=== PATIENT | male | born 1960 | race Caucasian/White ===

== ENCOUNTER 2018-01-20 17:21 | Emergency (ER) | payer BC | END 2018-01-20 18:55 | disposition home or self-care (01) | LOC: D.ER 17:21 | DX: M25.532 Pain in left wrist (principal); Z87.81 Personal history of (healed) traumatic fracture; E11.9 Type 2 diabetes mellitus without complications ==

== ENCOUNTER 2018-02-23 16:35 | Emergency (ER) | payer BC ==
[2018-02-23 17:00] LABS: BASOPHILS 0.3 % (0-2); HEMATOCRIT 41.2 % (42.0-54.0); HEMOGLOBIN 14.3 g/dL (13.5-17.5); IMMATURE GRANULOCYTES 0.3 % (0-5); LYMPHOCYTES 22.8 % (15-50); MCH 29.8 pg (26.0-34.0); MCHC 34.7 g/dL (31.0-37.0); MCV 85.8 fL (80.0-100.0); MEAN PLATELET VOLUME 9.7 fL (7.4-10.4); MONOCYTES 5.3 % (2-11); NEUTROPHILS 70.3 % (40-80); PLATELET COUNT 235 10x3/uL (130-400); RDW 13.3 % (11.5-14.5); WBC 12.4 10x3/uL (4.8-10.8)
[2018-02-23 17:19] LABS: ALBUMIN 3.5 g/dL (3.4-5.0); ALKALINE PHOSPHATASE 53 U/L (46-116); ALT (SGPT) 23 U/L (10-68); BILIRUBIN - TOTAL 0.24 mg/dL (0.2-1.3); CALC OSMOLALITY 279 mosm/kg (275-300); CALCIUM 9.4 mg/dL (8.5-10.1); CARBON DIOXIDE 25.5 mmol/L (21.0-32.0); CHLORIDE - SERUM 103 mmol/L (98-107); CREATININE - SERUM 0.7 mg/dL (0.6-1.3); GLUCOSE 220 mg/dL (74-106); POTASSIUM - SERUM 4.2 mmol/L (3.5-5.1); PROTEIN - SERUM 7.1 g/dL (6.4-8.2); SODIUM 136 mmol/L (136-145); UREA NITROGEN 15 mg/dL (7-18); eGFR NON AFRICAN AMERICAN > 90 mL/min (90-120)
[2018-02-23 17:32] LABS: CHOL - HDL RATIO 8.9 ratio (2.3-4.9); CHOLESTEROL, TOTAL 241 mg/dL (0-200); CREATINE KINASE 178 UL (21-232); HDL CHOLESTEROL 27 mg/dL (32-96); LDL CHOLESTEROL 164 mg/dL (0-100); LDL-HDL RATIO 6.1 ratio (1.5-3.5); PRO BNP 31 pg/mL (0-125); TRIGLYCERIDE 250 mg/dL (30-200)
[2018-02-23 17:45] LABS: TROPONIN-I < 0.017 ng/mL (0.000-0.060)
[2018-02-23 20:48] LABS: CKMB 1.4 U/L (0.0-3.6); CREATINE KINASE 133 UL (21-232)
[2018-02-23 20:56] LABS: TROPONIN-I < 0.017 ng/mL (0.000-0.060)
== END 2018-02-23 21:21 | disposition home or self-care (01) ==
LOC: D.ER 16:35
PROVIDERS: Family Medicine; Physician Assistant Medical
DX: R07.9 Chest pain, unspecified (principal); F17.200 Nicotine dependence, unspecified, uncomplicated; R00.0 Tachycardia, unspecified

== ENCOUNTER 2018-08-17 22:00 | Emergency (ER) | payer BC ==
[~2018-08-17] VITALS: Ht 175.3 cm; Wt 89.5 kg
[2018-08-17 22:06] VITALS: Ht 175.3 cm; Wt 89.5 kg
[2018-08-17 22:25] LABS: BASOPHILS 0.5 % (0-2); EOSINOPHILS 1.4 % (0-7); HEMATOCRIT 42.2 % (42.0-54.0); HEMOGLOBIN 14.8 g/dL (13.5-17.5); IMMATURE GRANULOCYTES 0.2 % (0-5); LYMPHOCYTES 38.4 % (15-50); MCHC 35.1 g/dL (31.0-37.0); MCV 85.6 fL (80.0-100.0); MEAN PLATELET VOLUME 9.3 fL (7.4-10.4); MONOCYTES 4.6 % (2-11); NEUTROPHILS 54.9 % (40-80); RBC 4.93 10x6/uL (4.20-6.10); RDW 12.9 % (11.5-14.5); WBC 9.1 10x3/uL (4.8-10.8)
[2018-08-17 22:26] LABS: PLATELET COUNT 184 10x3/uL (130-400)
[2018-08-17 22:35] LABS: APTT 25.8 SECONDS (22.8-39.4); INR 0.89 (0.85-1.17); PROTIME 11.7 SECONDS (11.6-15.0)
[2018-08-17 22:39] LABS: ALBUMIN 3.2 g/dL (3.4-5.0); ALKALINE PHOSPHATASE 60 U/L (46-116); ALT (SGPT) 21 U/L (10-68); BILIRUBIN - TOTAL 0.22 mg/dL (0.2-1.3); CALC OSMOLALITY 283 mosm/kg (275-300); CALCIUM 8.7 mg/dL (8.5-10.1); CARBON DIOXIDE 27.6 mmol/L (21.0-32.0); CHLORIDE - SERUM 100 mmol/L (98-107); POTASSIUM - SERUM 3.7 mmol/L (3.5-5.1); PROTEIN - SERUM 6.5 g/dL (6.4-8.2); SODIUM 134 mmol/L (136-145); UREA NITROGEN 19 mg/dL (7-18); eGFR NON AFRICAN AMERICAN 82 mL/min (90-120)
[2018-08-17 22:43] LABS: GLUCOSE 354 mg/dL (74-106)
[2018-08-17 22:51] LABS: CKMB 1.5 U/L (0.0-3.6); CREATINE KINASE 89 UL (21-232); MAGNESIUM - SERUM 1.7 mg/dL (1.8-2.4); TROPONIN-I < 0.017 ng/mL (0.000-0.060)
[2018-08-17] MEDS ORDERED: GLIPIZIDE10 MG PO (23:00)
[2018-08-17] MEDS ORDERED: NORCO 7.5/325 T1 TA1 PO (23:02)
[2018-08-18 00:28] VITALS: BP 116/65
== END 2018-08-18 00:28 | disposition home or self-care (01) ==
LOC: D.ER 22:00
PROVIDERS: Emergency Medicine
DX: R07.89 Other chest pain (principal); E11.65 Type 2 diabetes mellitus with hyperglycemia; E83.42 Hypomagnesemia; I10 Essential (primary) hypertension; F17.200 Nicotine dependence, unspecified, uncomplicated

== ENCOUNTER 2018-09-10 07:14 | Emergency (ER) | payer BC ==
[~2018-09-10] VITALS: Ht 175.3 cm; Wt 89.5 kg
[~2018-09-10 07:14] MED LIST: GLIPIZIDE10 MG PO; NORCO 7.5/325 T1 TA1 PO
[2018-09-10 07:24] VITALS: Ht 175.3 cm; Wt 89.5 kg
[2018-09-10 07:42] LABS: APPEARANCE CLEAR (CLEAR); COLOR YELLOW (YELLOW); NITRITE NEGATIVE (NEGATIVE); PROTEIN NEGATIVE (NEGATIVE)
[2018-09-10 07:43] LABS: BILIRUBIN NEGATIVE (NEGATIVE); GLUCOSE 1000 mg/dL (NEGATIVE); KETONE NEGATIVE (NEGATIVE); UROBILINOGEN NORMAL (NORMAL)
[2018-09-10] MEDS ORDERED: NORCO 7.5/325 T1 TA1 PO (08:13)
[2018-09-10 08:24] VITALS: BP 140/77
== END 2018-09-10 08:24 | disposition home or self-care (01) ==
LOC: D.ER 07:14
PROVIDERS: Emergency Medicine
DX: M54.16 Radiculopathy, lumbar region (principal); E11.9 Type 2 diabetes mellitus without complications; I10 Essential (primary) hypertension; F17.200 Nicotine dependence, unspecified, uncomplicated

== ENCOUNTER 2018-10-28 07:11 | Emergency (ER) | payer BC ==
[~2018-10-28] VITALS: Ht 175.3 cm; Wt 89.5 kg
[2018-10-28 07:13] VITALS: Ht 175.3 cm; Wt 89.5 kg
[2018-10-28] MEDS ORDERED: ACETAMINOPHEN500 M1 PO ×2 (07:39→07:42)
[2018-10-28] MEDS ORDERED: MEDROL DOSE PACK4 MG PO ×2 (07:39→07:42)
[2018-10-28] MEDS ORDERED: CYCLOBENZAPRINE10 MG PO ×2 (07:39→07:42)
[2018-10-28 08:04] VITALS: BP 141/85
== END 2018-10-28 08:00 | disposition home or self-care (01) ==
LOC: D.ER 07:11
DX: M54.41 Lumbago with sciatica, right side (principal); E11.9 Type 2 diabetes mellitus without complications; I10 Essential (primary) hypertension; F17.200 Nicotine dependence, unspecified, uncomplicated

== ENCOUNTER → 2018-11-23 07:04 | Outpatient (CLI) | payer BC ==
[2018-10-28 07:13] VITALS: BMI 29.1
[~2018-11-23 07:04] MED LIST changes: +ACETAMINOPHEN500 M1 PO; +CYCLOBENZAPRINE10 MG PO; +MEDROL DOSE PACK4 MG PO
== END | disposition home or self-care (01) ==
LOC: D.MRI 07:04
DX: M54.16 Radiculopathy, lumbar region (principal)

== ENCOUNTER 2019-03-26 08:08 | Emergency (ER) | payer BC ==
[~2019-03-26] VITALS: Ht 175.3 cm; Wt 82.7 kg
[2019-03-26 08:09] VITALS: BP 119/73; Ht 175.3 cm; Wt 82.7 kg
[2019-03-26] MEDS ORDERED: HYDROCODON-ACE1 EAC2 PO (08:28)
[2019-03-26] MEDS ORDERED: ZANAFLEX4 MG PO (08:28)
== END 2019-03-26 08:50 | disposition home or self-care (01) ==
LOC: D.ER 08:08
DX: S39.012A Strain of muscle, fascia and tendon of lower back, initial encounter (principal); X58.XXXA Exposure to other specified factors, initial encounter; Y93.89 Activity, other specified; Y92.89 Other specified places as the place of occurrence of the external cause

== ENCOUNTER 2019-04-27 06:44 | Emergency (ER) | payer MEDICARE, BC ==
[~2019-04-27] VITALS: Ht 175.3 cm; Wt 82.7 kg
[~2019-04-27 06:44] MED LIST changes: +HYDROCODON-ACE1 EAC2 PO; +ZANAFLEX4 MG PO
[2019-04-27 06:55] VITALS: Ht 175.3 cm; Wt 82.7 kg
[2019-04-27] MEDS ORDERED: PROTONIX40 MG PO (06:57)
[2019-04-27] MEDS ORDERED: ULTRAM50 MG PO (07:48)
[2019-04-27] MEDS ORDERED: NAPROSYN500 MG PO (07:49)
[2019-04-27 08:17] VITALS: BP 168/90
== END 2019-04-27 08:17 | disposition home or self-care (01) ==
LOC: D.ER 06:44
DX: R20.2 Paresthesia of skin (principal)

== ENCOUNTER 2019-05-19 12:20 | Emergency (ER) | payer MEDICARE, BC ==
[~2019-05-19] VITALS: Ht 175.3 cm; Wt 83.6 kg
[~2019-05-19 12:20] MED LIST changes: +NAPROSYN500 MG PO; +PROTONIX40 MG PO; +ULTRAM50 MG PO
[2019-05-19 12:21] VITALS: Ht 175.3 cm; Wt 83.6 kg
[2019-05-19] MEDS ORDERED: ULTRAM50 MG PO (14:50)
[2019-05-19 14:58] VITALS: BP 137/81
[2019-05-20] MEDS ORDERED: GABAPENTIN100 MG PO (02:07)
== END 2019-05-19 14:59 | disposition home or self-care (01) ==
LOC: D.ER 12:20
DX: M54.16 Radiculopathy, lumbar region (principal); M51.36 Other intervertebral disc degeneration, lumbar region

== ENCOUNTER 2019-05-19 22:40 | Emergency (ER) | payer MEDICARE, BC ==
[~2019-05-19] VITALS: Ht 175.3 cm; Wt 83.6 kg
[2019-05-19 22:40] VITALS: Ht 175.3 cm; Wt 83.6 kg
[2019-05-20] MEDS ORDERED: GABAPENTIN100 MG PO (02:07)
[2019-05-20 02:21] VITALS: BP 129/84
== END 2019-05-20 02:15 | disposition home or self-care (01) ==
LOC: D.ER 22:40
DX: M54.16 Radiculopathy, lumbar region (principal); W18.30XA Fall on same level, unspecified, initial encounter; Y93.89 Activity, other specified; Y92.89 Other specified places as the place of occurrence of the external cause; M25.551 Pain in right hip

== ENCOUNTER 2019-06-05 23:04 | Emergency (ER) | payer MEDICARE, BC ==
[~2019-06-05] VITALS: Ht 175.3 cm; Wt 83.6 kg
[~2019-06-05 23:04] MED LIST changes: +GABAPENTIN100 MG PO
[2019-06-05 23:10] VITALS: Ht 175.3 cm; Wt 83.6 kg
[2019-06-05] MEDS ORDERED: IBUPROFEN400 MG PO (23:12)
[2019-06-05] MEDS ORDERED: ZANAFLEX4 MG PO (23:12)
[2019-06-05] MEDS ORDERED: METFORMIN HCL500 M1 PO (23:13)
[2019-06-05 23:57] LABS: HEMATOCRIT 44.6 % (42.0-54.0); HEMOGLOBIN 15.7 g/dL (13.5-17.5); LYMPHOCYTES 31.3 % (15-50); MCH 29.8 pg (26.0-34.0); MCHC 35.2 g/dL (31.0-37.0); MCV 84.6 fL (80.0-100.0); MEAN PLATELET VOLUME 8.9 fL (7.4-10.4); RBC 5.27 10x6/uL (4.20-6.10); WBC 11.8 10x3/uL (4.8-10.8)
[2019-06-05 23:58] LABS: APTT 26.2 SECONDS (22.8-39.4); INR 0.87 (0.85-1.17); PROTIME 11.4 SECONDS (11.6-15.0)
[2019-06-05 23:59] LABS: PLATELET COUNT 233 10x3/uL (130-400)
[2019-06-06 00:05] LABS: ALBUMIN 3.5 g/dL (3.4-5.0); ALKALINE PHOSPHATASE 67 U/L (46-116); ALT (SGPT) 22 U/L (10-68); BILIRUBIN - TOTAL 0.26 mg/dL (0.2-1.3); CALC OSMOLALITY 286 mosm/kg (275-300); CALCIUM 9.1 mg/dL (8.5-10.1); CARBON DIOXIDE 23.8 mmol/L (21.0-32.0); CHLORIDE - SERUM 99 mmol/L (98-107); CREATININE - SERUM 1.1 mg/dL (0.6-1.3); GLUCOSE 386 mg/dL (74-106); PROTEIN - SERUM 7.1 g/dL (6.4-8.2); SODIUM 134 mmol/L (136-145); UREA NITROGEN 21 mg/dL (7-18); eGFR NON AFRICAN AMERICAN 73 mL/min (90-120)
[2019-06-06 00:18] LABS: CKMB 0.7 U/L (0.0-3.6); CREATINE KINASE 38 UL (21-232); MAGNESIUM - SERUM 1.9 mg/dL (1.8-2.4); TROPONIN-I < 0.017 ng/mL (0.000-0.060)
[2019-06-06 01:24] VITALS: BP 140/79
== END 2019-06-06 01:24 | disposition home or self-care (01) ==
LOC: D.ER 23:04
PROVIDERS: Family Medicine
DX: R07.89 Other chest pain (principal); G89.29 Other chronic pain

== ENCOUNTER 2019-06-15 20:48 | Emergency (ER) | payer MEDICARE, BC ==
[~2019-06-15] VITALS: Ht 175.3 cm; Wt 83.6 kg
[~2019-06-15 20:48] MED LIST changes: +IBUPROFEN400 MG PO; +METFORMIN HCL500 M1 PO
[2019-06-15 20:56] VITALS: Ht 175.3 cm; Wt 83.6 kg
[2019-06-15] MEDS ORDERED: LIPITOR20 MG PO (21:00)
[2019-06-15] MEDS ORDERED: NITROSTAT0.4 MG SL (21:00)
[2019-06-15] MEDS ORDERED: GLUCOTROL 5 MG T5 MG PO (21:00)
[2019-06-15 21:21] LABS: APTT 27.4 SECONDS (22.8-39.4); BASOPHILS 0.4 % (0-2); EOSINOPHILS 1.2 % (0-7); HEMATOCRIT 41.5 % (42.0-54.0); HEMOGLOBIN 14.8 g/dL (13.5-17.5); IMMATURE GRANULOCYTES 0.3 % (0-5); INR 0.87 (0.85-1.17); LYMPHOCYTES 31.1 % (15-50); MCHC 35.7 g/dL (31.0-37.0); MEAN PLATELET VOLUME 9.6 fL (7.4-10.4); MONOCYTES 5.9 % (2-11); NEUTROPHILS 61.1 % (40-80); PLATELET COUNT 187 10x3/uL (130-400); PROTIME 11.3 SECONDS (11.6-15.0); RBC 4.94 10x6/uL (4.20-6.10); RDW 13.3 % (11.5-14.5); WBC 12.1 10x3/uL (4.8-10.8)
[2019-06-15 21:25] LABS: ALBUMIN 3.5 g/dL (3.4-5.0); ALKALINE PHOSPHATASE 71 U/L (46-116); ALT (SGPT) 32 U/L (10-68); BILIRUBIN - TOTAL 0.24 mg/dL (0.2-1.3); CALC OSMOLALITY 284 mosm/kg (275-300); CALCIUM 8.8 mg/dL (8.5-10.1); CARBON DIOXIDE 25.4 mmol/L (21.0-32.0); CHLORIDE - SERUM 100 mmol/L (98-107); CREATININE - SERUM 1.4 mg/dL (0.6-1.3); POTASSIUM - SERUM 4.3 mmol/L (3.5-5.1); SODIUM 135 mmol/L (136-145); UREA NITROGEN 19 mg/dL (7-18); eGFR NON AFRICAN AMERICAN 55 mL/min (90-120)
[2019-06-15 21:29] LABS: GLUCOSE 337 mg/dL (74-106)
[2019-06-15 21:34] LABS: CKMB 0.8 U/L (0.0-3.6); CREATINE KINASE 56 UL (21-232); MAGNESIUM - SERUM 1.9 mg/dL (1.8-2.4)
[2019-06-15 21:35] LABS: TROPONIN-I < 0.017 ng/mL (0.000-0.060)
[2019-06-15] MEDS ORDERED: INDOCIN25 MG PO (21:59)
[2019-06-15 22:18] VITALS: BP 131/80
[2019-06-16] MEDS ORDERED: NEURONTIN 400400 MG PO (05:33)
[2019-06-16] MEDS ORDERED: HYDROCODON-ACE1 EA10 PO (05:34)
[2019-06-16] MEDS ORDERED: PLAVIX75 MG PO (16:05)
== END 2019-06-15 22:18 | disposition home or self-care (01) ==
LOC: D.ER 20:48
PROVIDERS: Emergency Medicine
DX: R07.89 Other chest pain (principal); I51.9 Heart disease, unspecified; E11.65 Type 2 diabetes mellitus with hyperglycemia; G81.91 Hemiplegia, unspecified affecting right dominant side; F17.200 Nicotine dependence, unspecified, uncomplicated

== ENCOUNTER 2019-06-16 02:48 | Observation (INO) | payer MEDICARE, BC ==
[~2019-06-16] VITALS: Ht 175.3 cm; Wt 84.5 kg
--- NOTE | ~2019-06-16 | HEMODYNAMI ---
PATIENT:MICHELLE FERREIRA MEDICAL RECORD: [id number] : 62 [id number] ADMISSION DATE: 06/16/19 Generatedon:06/16/201915:07 Patient name: MICHELLE FERREIRA Patient #: [id number] SSN: [id number] : 1960 Date of study: 06/16/2019 Page: Of Hemodynamic Procedure Report Patient Data Patient Demographics Procedure consent was obtained First Name: MICHELLE Gender: Male Last Name: JHON : 1960 [facility] Initial: O Age: 58 year(s) Patient #: [id number] Race: SSN: [id number] Additional ID: [id number] Contact details [address]: [address] [place] [address] State: [place] City: [place] Zip code: [address] Admission Admission Data Admission Date: 06/16/2019 Admission Time: 4:09 Arrival Date: 06/16/2019 Arrival Time: 0:00 Admit Source: Emergency Insurance Payor: Private department health insurance Room #: D.2121 [facility] #: [id number] Height (in.): 68.9 BSA: 2 (m2) Height (cm.): 175 BMI: 27.43 (kg/m2) Weight (lbs.): 185.19 Weight (kg.): 84 Lab Results Lab Result Date: 06/16/2019 Lab Result Time: 3:42 Biochemistry Name Units Result Min Max BUN mg/dl 19 --(----)*- 7 18 Creatinine mg/dl 1.4 --(----)*- 0.6 1.3 CBC Name Units Result Min Max Hematocrit % 41.5 -*(----)-- 42 54 Hemoglobin g/dl 14.8 --(-*--)-- 13.5 17.5 Procedure Procedure Types Cath Procedure Diagnostic Procedure C [facility] w/Coronaries FFR/IVUS FFR Initial Sedation Charges Moderate Sedation up to 30 minutes PCI Procedure Coronary Stent Coronary Stent Initial x2 Procedure Description Procedure Date Procedure Date: 06/16/2019 Procedure Start Time: 14:43 Procedure End Time: 15:01 Procedure Staff Name Function Mathew Berry MD Performing Physician Flory Patel RT Monitor Shannan Hope RT Scrub Yovanny Kohli RT Scrub Lilia Lobo RN Nurse Procedure Data Cath Procedure Fluoroscopy Diagnostic fluoroscopy Total fluoroscopy Time: 5.7 time: 5.7 min min Diagnostic fluoroscopy Total fluoroscopy dose: 425 dose: 425 mGy mGy Contrast Material Contrast Material Type Amount (ml) Isovue 300 88 Entry Location Entry Primary Successful Side Size Upsize Upsize Entry Closure Pinedo ccessful Closure Location (Fr) 1 (Fr) 2 (Fr) Remarks Device Remarks Radial Right 6 Fr Mechanical artery Short Compression Estimated blood loss: 5 ml Diagnostic catheters Device Type Used For End Catheter Placement DIAGNOSTIC Rippey 110cm 5 Multi-vessel Fr catheter ([id number]) Angiography Procedure Complications No complications Procedure Medications Medication Administration Route Dosage 0.9% NaCl I.V. 100 ml/hr Oxygen etCO2 Nasal cannula 2 l/min Lidocaine 2% added to field 20 Heparin Flush Bag added to field 2 bags (1000units/500ml NS) Radial Cocktail added to field 1 syringe (Verapamil 2mg/Nitro 400mcg/Heparin 1500units) Versed I.V. 2 mg Fentanyl I.V. 50 mcg Fentanyl I.V. 50 mcg Heparin Bolus I.V. 4000 units Integrilin (Bolus I.V. 7.9 ml 2mg/ml) Plavix P.O. 600 mg Integrilin (Bolus wasted 2.1 ml 2mg/ml) Hemodynamics Rest BSA: 2 (m2) HGB: 14.8 (g/dl) O2 Consumption: Estimated: 251.63 (ml/min) O2 Consu mption indexed: Estimated:125.82 (ml/min/m) Heart Rate: 90 (bpm) Pressure Samples Time Site Value (mmHg) Purpose Heart Use Rate(bpm) 14:45 LV 95/23,22 Snapshot 85 Snapshots Pre Cath Intra NCS Post Cath Vital Signs Time Heart Resp SPO2 etCO2 NIBP (mmHg) Rhythm Pain Sedation Rate (ipm) (%) (mmHg) Status Level (bpm) 14:25:10 84 14 98 37.4 129/84(106) NSR 0 (11) 10(A) , No pain 14:29:18 85 16 97 35.2 123/79(105) NSR 0 (11) 10(A) , No pain 14:33:26 84 16 97 36.7 121/76(97) NSR 0 (11) 10(A) , No pain 14:37:34 78 15 97 35.9 118/74(99) NSR 0 (11) 10(A) , No pain 14:41:40 81 16 98 35.9 116/73(93) NSR 0 (11) 10(A) , No pain 14:45:51 87 14 98 36.7 91/53(73) NSR 0 (11) 10(A) , No pain 14:49:49 88 14 98 36 111/74(96) NSR 0 (11) 9(A) , No pain 14:53:59 74 14 98 36.7 99/56(80) NSR 0 (11) 9(A) , No pain 14:58:03 76 15 95 36 100/61(75) NSR 0 (11) 10(A) , No pain 15:02:05 74 16 96 35.2 103/66(85) NSR 0 (11) 10(A) , No pain Medications Time Medication Route Dose Verified Delivered Reason Not es Effectiveness by by 14:24:18 0.9% NaCl I.V. 100 Mathew Lilia used for ml/hr Kristi Lobo senior assistant manager 14:24:25 Oxygen etCO2 2 l/min Mathew Lilia used for Nasal Kristi Lobo procedure cannula RN 14:24:29 Lidocaine 2% added 20ml Mathew Carmona for local to vial Kristi Berry MD anesthetic field 14:24:32 Heparin Flush added 2 bags Mathew Carmona used for Bag to Kristi Berry MD procedure (1000units/500ml field NS) 14:25:14 Radial Cocktail added 1 Mathew Carmona used for (Verapamil to syringe Kristi Berry MD procedure 2mg/Nitro field 400mcg/Heparin 1500units) 14:42:02 Versed I.V. 2 mg Mathew Lilia for sedation Kristi Lobo RN 14:42:08 Fentanyl I.V. 50 mcg Mathew Lilia for sedation Kristi Lobo RN 14:47:17 Fentanyl I.V. 50 mcg Mathew Rodrigues for sedation Kristi Lobo RN 14:49:27 Heparin Bolus I.V. 4000 Mathew Chunga for jewels ified units Kristi Lobo anticoagulation with Dr. GLORIA Berry 14:49:42 Integrilin I.V. 7.9 ml Mathew Chunga for (Bolus 2mg/ml) Kristi Lobo antiplatelet RN therapy 14:49:55 Plavix P.O. 600 mg Mathew Rodrigues for Kristi Lobo antiplatelet RN therapy 14:50:03 Integrilin wasted 2.1 ml Mathew Rodrigues for (Bolus 2mg/ml) Kristi Lobo antiplatelet RN therapy Procedure Log Time Note 14:00:07 Lilia Lobo RN sent for patient. Start room use. 14:07:02 Informed consent obtained and on chart 14:11:10 Admit Source: Emergency department 14:11:33 Arrival Date: 06/16/2019 12:00:00 AM 14:11:38 Insurance Payor : Private health insurance 14:11:49 Patient Weight : 185.19 lbs 14:11:54 Patient Height : 68.9 inches 14:13:24 Lab Result : BUN 19 mg/dl 14:13:24 Lab Result : Creatinine 1.4 mg/dl 14:13:24 Lab Result : Hematocrit 41.5 % 14:13:24 Lab Result : Hemoglobin 14.8 g/dl 14:13:43 Diagnostic Cath Status : Urgent 14:14:00 ACC Patient presents with Unstable Angina CCS Anginal Class 4--Inability to carry out any physical activity w/o angina. Angina may occur at rest. 14:14:02 ACCPatient has been prescribed/administered the following anti-anginal medication within the last 2 weeks: None 14:14:05 Procedure Status Urgent Heart Cath (IP). 14:14:12 Time tracking: Regular hours (M-F 7:00 - 5:00) 14:14:16 Plan of Care:Hemodynamics will remain stable., Cardiac rhythm will remain stable., Comfort level will be maintained., Respiratory function will remain adequate., Patient/ family verbilizes understanding of procedure., Procedure tolerated without complication., Recovers from procedure without complications.. 14:20:06 Patient received from PCU to CCL 3 Alert and oriented. Tansferred to table in Supine position. 14:24:07 Vital chart was started 14:24:18 0.9% NaCl 100 ml/hr I.V. was administered by Lilia Lobo RN; used for procedure; 14:24:25 Oxygen 2 l/min etCO2 Nasal cannula was administered by Lilia Lobo RN; used for procedure; 14::29 Lidocaine 2% 20ml vial added to field was administered by Mathew Berry MD; for local anesthetic; 14:24:32 Heparin Flush Bag (1000units/500ml NS) 2 bags added to field was administered by Mathew Berry MD; used for procedure; 14:25:11 Warm blankets applied, and desiree hugger turned on for patient comfort. 14:25:11 Correct patient and procedure confirmed by team. 14:25:12 ECG and BP/O2 sat monitors applied to patient. 14:25:14 Radial Cocktail (Verapamil 2mg/Nitro 400mcg/Heparin 1500units) 1 syringe added to field was administered by Mathew Berry MD; used for procedure; 14:25:26 Baseline sample Acquired. 14:25:30 Rhythm: sinus rhythm 14:25:31 Full Disclosure recording started 14:25:42 H&P Date Dictated: 06/16/2019 Within 30 days and on chart.. 14:25:43 Pre-procedure instructions explained to patient. 14:25:44 Pre-op teaching completed and patient verbalized understanding. 14:25:46 Family in patients room. 14:25:48 Patient NPO since Midnight. 14:25:49 Is the patient allergic to Iodine/contrast media? No. 14:25:50 Is patient on blood thinner?No 14:25:53 ACC The patient was administered the following blood thiners within the last 24 hours: None 14:25:55 Patient diabetic? Yes. 14:25:56 If diabetic: On Metformin? Yes 14:26:02 If on Metformin: Last Dose? 06/15/2019 14:26:05 Previous problem with sedation/anesthesia? No ? 14:26:06 Snore? Yes 14:26:07 Sleep apnea? No 14:26:08 Deviated septum? No 14:26:08 Opens mouth fully? Yes 14:26:09 Sticks out tongue? Yes 14:26:12 Airway obstruction? No ? 14:26:14 Dentures? No ? 14:26:19 Pre procedure: right dorsailis pedis pulse 1+ Palpable, but thready & weak; easily obliterated 14:26:21 Modified Arnie's test Ulnar < 7 seconds 14:26:23 Patient pain scale 0/10 ?. 14:26:30 IV patent on arrival in right forearm with 0.9% NaCl at [facility]. 14:26:32 Lab results completed and on chart. 14:26:36 Right Radial & Right Groin area was prepped with chlora-prep and draped in sterile fashion 14:26:38 Alarms reviewed by R. N. 14:26:38 Sharps counted by scrub and verified by R.N. 14:26:42 Use device set Radial Dx or PCI 14:26:43 Tegaderm 4 x 4 (1626W) opened to sterile field. 14:26:44 ACIST Manifold (10592) opened to sterile field. 14:26:45 ACIST Hand Control (38785) opened to sterile field. 14:26:46 ACIST Syringe (71418) opened to sterile field. 14:26:46 Medline Cath Pack ([id number]) opened to sterile field. 14:26:47 Bag Decanter (2002S) opened to sterile field. 14:26:47 MBrace Wrist Support ([id number]) opened to sterile field. 14:26:49 EMERALD Guide Wire (292-470) opened to sterile field. 14:26:55 SHEATH 6FR RAIN (6555133) opened to sterile field. 14:39:30 Zero performed for pressure channel P1 14:39:39 Zero performed for pressure channel P1 14:41:17 Physician arrived 14:41:17 --------ALL STOP TIME OUT------ 14:41:18 Final Timeout: patient, procedure, and site verified with staff and physician. All members of the team are in agreement. 14:41:20 Right Radial & Right Groin site verified by team. 14:41:24 Fire Safety Assessment: A--An alcohol-based skin anteseptic being used preoperatively., C--Open oxygen or nitrous oxide is being used., D--An ESU, laser, or fiber-optic light is being used. 14:41:29 Physical assessment completed. ASA score P 2 - A patient with mild systemic disease as per Mathew Berry MD. 14:42:02 Versed 2 mg I.V. was administered by Lilia Lobo RN; for sedation; 14:42:08 Fentanyl 50 mcg I.V. was administered by Lilia Lobo RN; for sedation; 14:42:25 3a) 45-59 Moderately reduced kidney function. 14:42:46 Maximum allowable contrast dose (3.7 X eGFR X 0.75)150 ml. 14:42:50 Sedation plan: IV Moderate Sedation Medication:Versed, Fentanyl 14:42:53 Procedure started. 14:43:01 Local anesthetic to right radial artery with Lidocaine 2% by Mathew Berry MD.INITIAL ACCESS ONLY 14:43:10 A 6 Fr Short sheath was inserted into the Right Radial artery 14:43:49 A DIAGNOSTIC Rippey 110cm 5 Fr catheter (384976) was advanced over the wire and used for Multi-vessel Angiography. 14:45:02 LV hemodynamics recorded. 14:45:11 EF : 40 % 14:45:21 RCA angiography performed. 14:45:24 Injector settings: Ml/sec: 3, Volume: 6, 14:45:45 LCA angiography performed. 14:45:48 Injector settings: Ml/sec: 3, Volume: 6, 14:46:09 Catheter removed. 14:46:41 INFLATOR Merit BasixCompak (OD8674) opened to sterile field. 14:46:42 CHOICE PT Extra Support 182cm wire ([id number]) opened to sterile field. 14:47:01 ACCDominant side:Co-Dominant 14:47:17 Fentanyl 50 mcg I.V. was administered by Lilia Lobo RN; for sedation; 14:48:44 6 Fr XBLAD 3.5 guide catheter was inserted over the wire 14:48:49 CHOICE PT wire advanced. 14:48:51 Wire advanced across lesion. 14:48:59 Pre PCI Site: [place] pLAD has 95% stenosis. 14:49:27 Heparin Bolus 4000 units I.V. was administered by Lilia Lobo RN; for anticoagulation; verified with Dr. Berry 14:49:42 Integrilin (Bolus 2mg/ml) 7.9 ml I.V. was administered by Lilia Lobo RN; for antiplatelet therapy; 14:49:48 Inflate balloon Inflation number: 1 A EUPHORA 2.5 x 20 Balloon ([id number]) was prepped and advanced across the Prox LAD 95, then inflated to 13 JULIA for 0:10 (min:sec) . 14:49:55 Plavix 600 mg P.O. was administered by Lilia Lobo RN; for antiplatelet therapy; 14:49:58 Inflation number: 2 The EUPHORA 2.5 x 20 Balloon ([id number]) was reinflated across the Prox LAD , to 13 JULIA for 0:10 (min:sec) . 14:50:03 Integrilin (Bolus 2mg/ml) 2.1 ml wasted was administered by Lilia Lobo RN; for antiplatelet therapy; 14:50:21 Balloon removed over the wire. 14:51:50 Place stent Inflation Number: 1 A AVEL RX 2.5 x 26 stent ([id number]) was prepped and advanced across the Prox LAD1 95. The stent was deployed at 13 JULIA for 0:10 (min:sec) 0. 14:52:44 Wire redirected to LCX. 14:54:01 GUIDE 6FR XB 3.5 catheter ([id number]) opened to sterile field. 14:55:06 Place stent Inflation Number: 1 A AVEL RX 2.5 x 30 stent ([id number]) was prepped and advanced across the Mid CX 100. The stent was deployed at 13 JULIA for 0:10 (min:sec) 0. 14:55:54 Stent catheter was removed intact over wire. 14:55:54 Wire removed. 14:55:55 Guide catheter removed. 14:56:15 GUIDE 6FR HS II catheter ([id number]) opened to sterile field. 14:56:31 6 Fr HS 2 guide catheter was inserted over the wire 14:56:47 FFR/IFR wire advanced. 14:56:52 Baseline FFR 1. 14:58:09 ACC Post-intervention DEEPA Flow is 3. 14:59:10 pRCA lesion measured at 0.96 with IFR 14:59:49 Wire removed. 14:59:50 Guide catheter removed. 15:00:03 ZEPHYR REGULAR TR BAND (687552) opened to sterile field. 15:00:12 Sheath removed intact; hemostasis achieved with Mechanical Compression to the Right Radial artery. 15:00:15 Procedure ended.(Physican Out) 15:00:25 Fluoroscopy time 05.70 minutes. 15:00:29 Fluoroscopy dose: 425 mGy 15:00:29 Flurop Dose total: 425 15:00:35 Dose Area Product 2618 mGy/cm. 15:00:38 Contrast amount:Isovue 300 88ml. 15:00:40 Sharps counted by scrub and verified by R.N. 15:00:42 [place] band inflated with 10cc of air. 15:00:44 Insertion/operative site no bleeding no hematoma. 15:00:48 Post right radial artery:stable 15:00:50 Post Procedure Pulses reassessed and unchanged 15:00:53 Post procedure rhythm: unchanged. 15:00:56 Estimated blood loss: 5 ml 15:00:57 Post procedure instruction explained to patient.Patient verbalizes understanding. 15:00:58 Patient needs reinforcement of post procedure teaching. 15:01:21 Procedure type changed to Cath procedure, Diagnostic procedure, LHC, LHC w/Coronaries, FFR/IVUS, FFR Initial, Sedation Charges, Moderate Sedation up to 30 minutes, PCI procedure, Coronary Stent, Coronary Stent Initial x2 15:01:22 Procedure and supply charges have been captured, reviewed, submitted and are correct. 15:01:29 Procedure Complication : No complications 15:01:32 Vital chart was stopped 15:01:32 See physician's report for complete and final results. 15:01:34 Report given to [facility]. 15:01:37 Patient transfered to [facility] with Stretcher. 15:01:39 Procedure ended. 15:01:39 Full Disclosure recording stopped 15:01:53 ACC-PCI Only Patient was given prescriptions, or instructed by Mathew Berry MD to start/continue the following medications upon discharge: Plavix 15:01:56 End room use (Document Last) Intervention Summary Intervention Notes Time ActionType Lesion and Equipment Used Action# Pressure Duration Attributes 14:49:48 Inflate Prox LAD EUPHORA 2.5 x 1 13 00:10 balloon 20 Balloon ([id number]) 14:49:58 Reinflate Prox LAD EUPHORA 2.5 x 2 13 00:10 balloon 20 Balloon ([id number]) 14:51:50 Place stent Prox LAD1 AVEL RX 2.5 x 1 13 00:10 26 stent ([id number]) 14:55:06 Place stent Mid CX AVEL RX 2.5 x 1 13 00:10 30 stent ([id number]) Device Usage Item Name Manufacture Quantity Catalog Number Hospital Part Current M inimal Lot# / Charge Number Stock Stock Serial# Code Tegaderm 4 x 4 3M 1 1626W 932920 539649 218600 5 (1626W) ACIST Manifold Acist 1 79566 856674 249771 165963 5 (21950) Medical Systems Inc ACIST Hand Acist 1 97257 180019 451547 572194 5 Control Medical (36231) Systems Inc ACIST Syringe Acist 1 11359 766389 994339 507217 2 0 (09560) Medical Systems Inc Medline Cath Medline 1 [id number] 943123 41914 808060 5 Pack ([id number]) Bag Decanter Microtek 1 2002S 154147 82084 039016 5 (2001S) Medical Inc. MBrace Wrist Advanced 1 140-0250-00 687026 04019 200501 5 Support Vascular (397992679) Dynamics EMERALD Guide Cardinal 1 502-455 263797 986032 386366 5 Wire (502-455) Health SHEATH 6FR Cardinal 1 0137292 090773 5600822 540765 5 RAIN (3405490) Health DIAGNOSTIC Terumo 1 40-9013 887056 411612 470380 5 Rippey 110cm 5 Fr catheter (121648) INFLATOR Merit Merit 1 XW1285 922082 503829 162213 1 5 Ibotta (ZR4115) CHOICE PT [place] 1 [id number] 545492 274633 690721 5 Extra Support Scientific 182cm wire ([id number]) EUPHORA 2.5 x Medtronic 1 [id number] 329262 028278 924998 5 [id number] 20 Balloon (ZLD1612B) AVEL RX 2.5 x Medtronic 1 [id number] 355087 3839535 721759 5 [id number] 26 stent ([id number]) GUIDE 6FR XB Cardinal 1 [id number] 888915 561300 654245 2 3.5 catheter Health (84866008) AVEL RX 2.5 x Medtronic 1 [id number] 036669 0603342 070020 5 [id number] 30 stent ([id number]) GUIDE 6FR HS Medtronic 1 [id number] 930006 73651 167819 1 II catheter (FU6XXOR) ZEPHYR REGULAR Cardinal 1 374701 912609 4956341 390324 5 TR BAND Health (460554) Signature Audit [place] Stage Time Signature Unsigned Intra-Procedure 06/16/2019 Flory Patel 3:07:29 PM RT(R) Signatures Performing Physician : Signature : Mathew Berry MD Date : Time : Monitor : Flory Patel RT Signature : Date : Time : Nurse : Lilia Lobo RN Signature : Date : Time : [place] [address] [place] [address]
[~2019-06-16 02:48] MED LIST changes: +GLUCOTROL 5 MG T5 MG PO; +INDOCIN25 MG PO; +LIPITOR20 MG PO; +NITROSTAT0.4 MG SL
--- NOTE | 2019-06-16 03:07 | NUR ---
PT GIVEN BLANKET
[2019-06-16 03:30] VITALS: BP 134/77
[2019-06-16 03:30] LABS: CREATINE KINASE 57 UL (21-232); TROPONIN-I < 0.017 ng/mL (0.000-0.060)
--- NOTE | 2019-06-16 03:35 | NUR ---
PT AMBULATED TO RESTROOM INDEPENDENTLY.
--- NOTE | 2019-06-16 03:42 | NUR ---
URINE SENT TO LAB
[2019-06-16 03:53] LABS: UDS - AMPHET NEGATIVE QUAL (NEGATIVE); UDS - BARB NEGATIVE QUAL (NEGATIVE); UDS - BENZO NEGATIVE QUAL (NEGATIVE); UDS - COCAINE NEGATIVE QUAL (NEGATIVE); UDS - OPIATE NEGATIVE QUAL (NEGATIVE); UDS - PCP NEGATIVE QUAL (NEGATIVE); UDS - THC NEGATIVE QUAL (NEGATIVE)
[2019-06-16] MEDS ORDERED: NEURONTIN 400400 MG PO (05:33)
[2019-06-16] MEDS ORDERED: HYDROCODON-ACE1 EA10 PO (05:34)
[2019-06-16 06:40] VITALS: BP 129/78; BMI 27.5
--- NOTE | 2019-06-16 07:59 | NUR ---
ALERT AND ORIENTED. DENIES ANY NEEDS AT PRESENT TIME. TELEMERTY SHOWS SR 75. RIGHT AC SL, PATENT.TROPOIN NEG. PT IS UP AB DAVE. WILL MONITOR
[2019-06-16 08:00] VITALS: BP 130/85
[2019-06-16 08:56] LABS: ANION GAP 17.7 mmol/L (8-16); CALCIUM 9.6 mg/dL (8.5-10.1); CARBON DIOXIDE 22.7 mmol/L (21.0-32.0); CREATININE - SERUM 1.2 mg/dL (0.6-1.3); POTASSIUM - SERUM 4.4 mmol/L (3.5-5.1)
[2019-06-16 08:58] LABS: BASOPHILS 0.5 % (0-2); EOSINOPHILS 1.2 % (0-7); HEMATOCRIT 42.5 % (42.0-54.0); HEMOGLOBIN 14.8 g/dL (13.5-17.5); IMMATURE GRANULOCYTES 0.3 % (0-5); LYMPHOCYTES 32.1 % (15-50); MCH 30.1 pg (26.0-34.0); MCHC 34.8 g/dL (31.0-37.0); MEAN PLATELET VOLUME 10.3 fL (7.4-10.4); NEUTROPHILS 60.9 % (40-80); PLATELET COUNT 204 10x3/uL (130-400); RBC 4.92 10x6/uL (4.20-6.10); RDW 13.8 % (11.5-14.5)
[2019-06-16 09:04] LABS: MCV 86.4 fL (80.0-100.0)
[2019-06-16 11:16] VITALS: Ht 175.3 cm; Wt 84.5 kg
--- NOTE | 2019-06-16 11:40 | NUR ---
PRE OP ED FOR CATH
[2019-06-16 12:00] VITALS: BP 134/83
[2019-06-16 14:45] VITALS: BP 103/62
--- NOTE | 2019-06-16 15:43 | NUR ---
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 SLEEPING BUT EASILY AROUSED. TELEMERTY SHOWS SR. B/P 100/64 RESP 18, HR 68 O2 SAT 94. DENIES ANY NEEDS. SR UP WITH CALL LIGHT IN REACH
[2019-06-16] MEDS ORDERED: PLAVIX75 MG PO (16:05)
--- NOTE | 2019-06-16 17:27 | NUR ---
PT LYING QUIETLY, RIGHT WRIST TR BAND/ZEPHYR BAND. NO BLEEDING OR SWELLING NOTED. FINGERS WARM. TELEMERTY SHOWS SR. V/S STABLE WILL MONITOR
--- NOTE | 2019-06-16 18:39 | NUR ---
PT DISCHARGED. INSTRUCTIONS GIVEN TO PT AND FAMILY TO PRIVATE CAR GRACE
--- NOTE | 2019-06-28 14:31 | OP ---
PATIENT NAME: MICHELLE FERREIRA MEDICAL RECORD: [id number] :62 LOCATION:D.M2 D.2121 ADMISSION DATE:06/16/19 SURGEON: FLORI MALLOY MD DATE OF OPERATION: 06/16/2019 PROCEDURES: 1. PTCA stent LAD. 2. PTCA stent left circumflex. 3. IFR. 4. Left heart catheterization. 5. Selective coronary angiography. 6. Left ventriculogram. INDICATION: Unstable angina class IV. PROCEDURE IN DETAIL: After informed consent was obtained and after a detailed description of risks, benefits as well as alternative therapies, the patient elected to proceed with angiogram and angioplasty. The right radial area was prepped and draped in normal sterile fashion. Right radial artery was cannulated via modified Seldinger technique with placement of 6-Bulgarian sheath. All catheters exchanged through this sheath. FINDINGS: The left ventriculogram was performed in standard 30-degree RYAN view, reveals global hypokinesis, ejection fraction 40%. SELECTIVE CORONARY ANGIOGRAPHY: 1. Left main has no significant angiographic disease. 2. Left anterior descending has 99% stenosis in the mid vessel. 3. Left circumflex has previously placed stent is totally occluded. 4. Right coronary has questionable stenosis in the mid vessel; however, IFR was normal. PTCA STENT OF THE LAD: The stent used was a 2.5 x 26 mm [place]. Result was 0% residual stenosis. PTCA STENT OF THE LEFT CIRCUMFLEX: The stent used was a 2.5 x 30 mm [place]. Result was 0% residual stenosis. OVERALL IMPRESSION: Successful PTCA stent of the LAD and circumflex, both going from 99% to 100% initial stenosis to 0% residual. TRANSINT:[id number] Voice Confirmation ID: [id number] DOCUMENT ID: [id number] FLORI MALLOY MD at 1431 CC: [id number] DICTATION DATE: 06/16/19 1504 DISTRICT PLANT ENGINEER: 06/16/19 1836 DIS IN 06/16/19 [place] [address] [place] [address]
== END 2019-06-16 18:42 | disposition home or self-care (01) ==
LOC: D.ER 02:48 → OBSVTIME 04:09 → D.M2 04:09
PROVIDERS: Emergency Medicine; Internal Medicine Interventional Cardiology; ADMIT Internal Medicine Nephrology; ATTEND Internal Medicine Nephrology
DX: I25.110 Atherosclerotic heart disease of native coronary artery with unstable angina pectoris (principal); N17.9 Acute kidney failure, unspecified; E78.5 Hyperlipidemia, unspecified; E11.9 Type 2 diabetes mellitus without complications; K21.9 Gastro-esophageal reflux disease without esophagitis; G89.29 Other chronic pain; F17.213 Nicotine dependence, cigarettes, with withdrawal

== ENCOUNTER 2019-08-12 09:36 | Emergency (ER) | payer MEDICARE, BC ==
[~2019-08-12] VITALS: Ht 175.3 cm; Wt 86.4 kg
[~2019-08-12 09:36] MED LIST changes: +HYDROCODON-ACE1 EA10 PO; +NEURONTIN 400400 MG PO; +PLAVIX75 MG PO
[2019-08-12 09:40] VITALS: Ht 175.3 cm; Wt 86.4 kg
[2019-08-12 10:21] LABS: HEMATOCRIT 40.3 % (42.0-54.0); HEMOGLOBIN 13.5 g/dL (13.5-17.5); LYMPHOCYTES 31.9 % (15-50); MCH 28.8 pg (26.0-34.0); MCHC 33.5 g/dL (31.0-37.0); MCV 85.9 fL (80.0-100.0); MEAN PLATELET VOLUME 8.9 fL (7.4-10.4); PLATELET COUNT 204 10x3/uL (130-400); RBC 4.69 10x6/uL (4.20-6.10); WBC 7.1 10x3/uL (4.8-10.8)
[2019-08-12 10:30] LABS: CALC OSMOLALITY 281 mosm/kg (275-300); CARBON DIOXIDE 28.7 mmol/L (21.0-32.0); CHLORIDE - SERUM 104 mmol/L (98-107); CREATININE - SERUM 0.7 mg/dL (0.6-1.3); GLUCOSE 150 mg/dL (74-106); POTASSIUM - SERUM 4.4 mmol/L (3.5-5.1); SODIUM 139 mmol/L (136-145); UREA NITROGEN 14 mg/dL (7-18); eGFR NON AFRICAN AMERICAN > 90 mL/min (90-120)
[2019-08-12 10:37] LABS: ALBUMIN 3.7 g/dL (3.4-5.0); ALKALINE PHOSPHATASE 60 U/L (46-116); ALT (SGPT) 21 U/L (10-68); BILIRUBIN - TOTAL 0.29 mg/dL (0.2-1.3); C-REACTIVE PROTEIN < 0.2 mg/dL (0.0-0.9)
[2019-08-12] MEDS ORDERED: TYLENOL W/CODEI1 TAB PO (10:43)
[2019-08-12 10:57] VITALS: BP 138/66
== END 2019-08-12 10:57 | disposition home or self-care (01) ==
LOC: D.ER 09:36
PROVIDERS: Family Medicine
DX: R51 Headache (principal); I25.10 Atherosclerotic heart disease of native coronary artery without angina pectoris; E11.9 Type 2 diabetes mellitus without complications

== ENCOUNTER 2019-09-28 07:38 | Emergency (ER) | payer MEDICARE, BC ==
[~2019-09-28] VITALS: Ht 175.3 cm; Wt 83.2 kg
[~2019-09-28 07:38] MED LIST changes: +TYLENOL W/CODEI1 TAB PO
[2019-09-28 07:47] VITALS: Ht 175.3 cm; Wt 83.2 kg
[2019-09-28] MEDS ORDERED: NAPROSYN500 MG PO (07:54)
[2019-09-28] MEDS ORDERED: JARDIANCE25 MG PO (07:57)
[2019-09-28] MEDS ORDERED: ASPIRIN81 MG PO (08:02)
[2019-09-28 08:18] LABS: BASOPHILS 0.6 % (0-2); EOSINOPHILS 1.6 % (0-7); HEMATOCRIT 43.7 % (42.0-54.0); HEMOGLOBIN 14.6 g/dL (13.5-17.5); IMMATURE GRANULOCYTES 0.2 % (0-5); LYMPHOCYTES 27.9 % (15-50); MCH 29.5 pg (26.0-34.0); MCHC 33.4 g/dL (31.0-37.0); MCV 88.3 fL (80.0-100.0); MEAN PLATELET VOLUME 9.4 fL (7.4-10.4); MONOCYTES 6.2 % (2-11); NEUTROPHILS 63.5 % (40-80); PLATELET COUNT 216 10x3/uL (130-400); RBC 4.95 10x6/uL (4.20-6.10); RDW 13.7 % (11.5-14.5); WBC 8.6 10x3/uL (4.8-10.8)
[2019-09-28 08:25] LABS: CALC OSMOLALITY 280 mosm/kg (275-300); CALCIUM 9.1 mg/dL (8.5-10.1); CARBON DIOXIDE 25.8 mmol/L (21.0-32.0); CHLORIDE - SERUM 104 mmol/L (98-107); CREATININE - SERUM 0.9 mg/dL (0.6-1.3); GLUCOSE 151 mg/dL (74-106); POTASSIUM - SERUM 4.4 mmol/L (3.5-5.1); SODIUM 138 mmol/L (136-145); UREA NITROGEN 19 mg/dL (7-18); eGFR NON AFRICAN AMERICAN > 90 mL/min (90-120)
[2019-09-28 08:29] LABS: PROTIME 12.7 SECONDS (11.6-15.0)
[2019-09-28 08:42] LABS: ALKALINE PHOSPHATASE 48 U/L (46-116); ALT (SGPT) 30 U/L (10-68); BILIRUBIN - TOTAL 0.36 mg/dL (0.2-1.3); CKMB 2.7 U/L (0.0-3.6); CREATINE KINASE 202 UL (21-232); MAGNESIUM - SERUM 2.1 mg/dL (1.8-2.4); PROTEIN - SERUM 7.3 g/dL (6.4-8.2); THYROID STIMULATING HORMONE 1.35 uIU/mL (0.36-3.74); TROPONIN-I < 0.017 ng/mL (0.000-0.060)
[2019-09-28 09:48] VITALS: BP 138/79
== END 2019-09-28 09:49 | disposition home or self-care (01) ==
LOC: D.ER 07:38
PROVIDERS: Family Medicine
DX: R51 Headache (principal); E11.9 Type 2 diabetes mellitus without complications; Z79.84 Long term (current) use of oral hypoglycemic drugs; Z95.818 Presence of other cardiac implants and grafts; I25.2 Old myocardial infarction; M54.9 Dorsalgia, unspecified; K21.9 Gastro-esophageal reflux disease without esophagitis

== ENCOUNTER 2019-10-25 23:40 | Observation (INO) | payer MEDICARE, OTHER ==
[~2019-10-25] VITALS: Ht 175.3 cm; Wt 78.9 kg
[~2019-10-25 23:40] MED LIST changes: +ASPIRIN81 MG PO; +JARDIANCE25 MG PO
[2019-10-25] MEDS ORDERED: NEURONTIN800 MG PO (23:49)
--- NOTE | 2019-10-26 00:09 | NUR ---
1ST NITRO ADMINISTERED RATES CHEST PAIN 7/10. RECHECK IN 5 MINUTES
--- NOTE | 2019-10-26 00:15 | NUR ---
SECOND NITRO ADMINISTERED. NO CHANGE IN CHEST PAIN, RATES PAIN 7/10. WILL RECHECK IN 5 MINUTES
[2019-10-26 00:20] LABS: BASOPHILS 0.6 % (0-2); HEMATOCRIT 45.3 % (42.0-54.0); HEMOGLOBIN 15.6 g/dL (13.5-17.5); IMMATURE GRANULOCYTES 0.3 % (0-5); LYMPHOCYTES 35.1 % (15-50); MCH 29.5 pg (26.0-34.0); MCHC 34.4 g/dL (31.0-37.0); MCV 85.8 fL (80.0-100.0); MEAN PLATELET VOLUME 10.1 fL (7.4-10.4); MONOCYTES 5.5 % (2-11); NEUTROPHILS 56.5 % (40-80); PLATELET COUNT 237 10x3/uL (130-400); RBC 5.28 10x6/uL (4.20-6.10); RDW 13.1 % (11.5-14.5); WBC 10.4 10x3/uL (4.8-10.8)
[2019-10-26 00:24] LABS: CALC OSMOLALITY 282 mosm/kg (275-300); CALCIUM 8.7 mg/dL (8.5-10.1); CARBON DIOXIDE 26.2 mmol/L (21.0-32.0); CHLORIDE - SERUM 98 mmol/L (98-107); CREATININE - SERUM 0.6 mg/dL (0.6-1.3); POTASSIUM - SERUM 5.7 mmol/L (3.5-5.1); SODIUM 135 mmol/L (136-145); UREA NITROGEN 17 mg/dL (7-18); eGFR NON AFRICAN AMERICAN > 90 mL/min (90-120)
--- NOTE | 2019-10-26 00:27 | NUR ---
CHEST PAIN 6/10 AFTER SECOND NITRO. 3 RD NITRO ADMINISTERED AT THIS TIME.
[2019-10-26 00:28] VITALS: BP 130/81
[2019-10-26 00:30] LABS: APTT 30.3 SECONDS (22.8-39.4); GLUCOSE 294 mg/dL (74-106)
[2019-10-26 00:31] LABS: INR 0.88 (0.85-1.17); PROTIME 11.9 SECONDS (11.6-15.0)
[2019-10-26 00:39] LABS: ALBUMIN 3.2 g/dL (3.4-5.0); ALKALINE PHOSPHATASE 58 U/L (46-116); ALT (SGPT) 23 U/L (10-68); BILIRUBIN - TOTAL 0.43 mg/dL (0.2-1.3); CKMB 0.7 U/L (0.0-3.6); CREATINE KINASE 115 UL (21-232); MAGNESIUM - SERUM 1.8 mg/dL (1.8-2.4); PROTEIN - SERUM 6.6 g/dL (6.4-8.2)
[2019-10-26 00:40] LABS: TROPONIN-I < 0.017 ng/mL (0.000-0.060)
[2019-10-26 01:43] VITALS: BP 121/73
[2019-10-26 02:30] VITALS: BP 120/75; BMI 25.7
--- NOTE | 2019-10-26 02:30 | NUR ---
PT ARRIVED ON UNIT VIA STRETCHER, HOOKED TO MONITORS, ALERT AND ORIENTED, ALL PPP, VSS, CALL LIGHT IN REACH
[2019-10-26 02:43] VITALS: BP 120/75
--- NOTE | 2019-10-26 05:09 | NUR ---
PT RESTING AT THIS TIME, NO NEEDS NOTED, WILL CON'T TO MONITOR
--- NOTE | 2019-10-26 05:44 | NUR ---
CONSULT CALLED TO DR. ODOM, NO NEW ORDERS RECEIVED,
[2019-10-26 06:57] LABS: BASOPHILS 0.5 % (0-2); EOSINOPHILS 2.4 % (0-7); HEMATOCRIT 43.6 % (42.0-54.0); HEMOGLOBIN 14.8 g/dL (13.5-17.5); IMMATURE GRANULOCYTES 0.2 % (0-5); LYMPHOCYTES 36.3 % (15-50); MCH 29.5 pg (26.0-34.0); MCHC 33.9 g/dL (31.0-37.0); MCV 86.9 fL (80.0-100.0); MEAN PLATELET VOLUME 8.8 fL (7.4-10.4); MONOCYTES 6.3 % (2-11); NEUTROPHILS 54.3 % (40-80); PLATELET COUNT 226 10x3/uL (130-400); RBC 5.02 10x6/uL (4.20-6.10); RDW 13.2 % (11.5-14.5); WBC 10.2 10x3/uL (4.8-10.8)
--- NOTE | 2019-10-26 07:00 | NUR ---
REPORT RECEVIED FROM OFF GOING RN. SEE ASSESSMENT IN THE PTS FLOW SHEET. VSS. PT DENIES CHEST PAIN AT THIS TIME. NO S/SX OF DISTRESS/DISCOMFOT NOTED. CALL LIGHT IN REACH. WILL CONT POC.
[2019-10-26 07:09] LABS: CALCIUM 8.9 mg/dL (8.5-10.1); CHLORIDE - SERUM 102 mmol/L (98-107); CKMB 0.7 U/L (0.0-3.6); CREATINE KINASE 41 UL (21-232); PHOSPHOROUS 4.5 mg/dL (2.5-4.9); SODIUM 137 mmol/L (136-145)
[2019-10-26 07:11] LABS: CALC OSMOLALITY 283 mosm/kg (275-300); CREATININE - SERUM 0.8 mg/dL (0.6-1.3); GLUCOSE 221 mg/dL (74-106); POTASSIUM - SERUM 4.2 mmol/L (3.5-5.1); TROPONIN-I < 0.017 ng/mL (0.000-0.060); UREA NITROGEN 22 mg/dL (7-18); eGFR NON AFRICAN AMERICAN > 90 mL/min (90-120)
--- NOTE | 2019-10-26 08:42 | NUR ---
DR KIMBLE AT THE PTS BEDSIDE. OK FOR BREAKFAST TRAY NOW BUT KEEP NPO AFTER 0930. PLAN FOR CATHLAB LATER TODAY.
[2019-10-26 09:16] LABS: CHOL - HDL RATIO 7.2 ratio (2.3-4.9); LDL-HDL RATIO 5.1 ratio (1.5-3.5)
[2019-10-26 09:36] VITALS: Ht 175.3 cm; Wt 78.9 kg
--- NOTE | 2019-10-26 11:26 | NUR ---
PT WANTING TO LEAVE AMA. EXPLAINED TO THE PT THAT HE IS AT HIGH RISK OF HAVING A HEART ATTACK. DR KIMBLE NOTIFIED. DR GLORIA IN THE UNIT AND SPEAKING WITH THE PT ABOUT HIM BEING A HIGH RISK PT OF HAVING A HEART ATTACK AND POSSIBLE . PT UNDERSTANDS THE RISKS AND WISHS TO LEAVE AMA. HOUSE SUPIVISOR NOTIFIED. PT IV DC'D WITH THE CATHETER TIP INTACT. PT LEFT WITH HIS IN A STABLE CONDITION. PT DENIES CHEST PAIN AT THE TIME OF HIM LEAVING.
--- NOTE | 2019-10-26 15:10 | MORECARE ---
CASE MANAGEMENT DISCHARGE SUMMARY PATIENT: MICHELLE FERREIRA UNIT: [id number] ADM DATE: 10/26/19 AGE: 58 : 62 SEX: M ROOM/BED: D.2309 AUTHOR: VANI CRUZ PHYSICIAN: REFERRING PHYSICIAN: ANGELLA JOYCE MD DATE OF SERVICE: 10/26/19 Discharge Plan Patient Name: MICHEL[facility]ERREIRA [facility] [facility] 1960 Planned Disposition: Anticipated Discharge Date: Discharge Date: 10/26/2019 Expected LOS: Initial Reviewer: [email or web address] Initial Review Date: 10/26/2019 Generated: 10/26/19 4:09 pm Patient Name: MICHELLE FERREIRA Page [id number] at 1510 All edits/amendments must be made on the electronic document DICTATION DATE: 10/26/19 1509 COATING MACHINE OPERATOR: IAN 10/26/19 1509 RPT#: [id number] DC DATE:10/26/19 STATUS: DIS IN [facility] [address] [place] [address] END OF REPORT
--- NOTE | 2019-10-27 08:49 | CN ---
PATIENT NAME:MICHELLE FERREIRA MEDICAL RECORD: [id number] : 62 LOCATION:[id number] ADMIT DATE: 10/26/19 ACCOUNT: [id number] CONSULTING PHYSICIAN: ANGELLA KIMBLE MD REFERRING PHYSICIAN: ANGELLA JOYCE MD DATE OF CONSULTATION: 10/26/2019 HISTORY OF PRESENT ILLNESS: A 58-year-old gentleman with a history of coronary artery disease, status post intervention LAD and circumflex, has a history of diabetes mellitus, hypertension, dyslipidemia, presented with chest pain, pressure and tightness, reminiscent of previous angina, certainly within the window for restenosis. We are asked to see him concerning his cardiovascular status. PAST MEDICAL HISTORY: Includes; 1. History of hypertension. 2. Coronary artery disease as described above. 3. Hyperlipidemia. 4. Diabetes mellitus. 5. Gastroesophageal reflux disease. ALLERGIES: PENICILLIN. MEDICATIONS: Include Plavix 75 mg p.o. every day, Lipitor 20 every day, aspirin 81 every day, Neurontin 800 b.i.d., Naprosyn 500 b.i.d., Jardiance 25 mg p.o. every day, Glucotrol 5 every day, Glucophage half gram b.i.d. REVIEW OF SYSTEMS: The patient reports easy bruising but reports no swollen glands. The patient reports no fever, no night sweats, no significant weight gain, no significant weight loss. No significant exercise tolerance. The patient reports no dry eyes, no irritation, no vision change. Patient reports no difficulty hearing and no ear pain. Patient reports no frequent nose bleeds or nose and sinus problems. Patient reports on arm pain on exertion. No shortness of breath while lying down. No history of heart murmur. Patient reports no cough, no wheezing or coughing up blood. Patient reports no abdominal pain, no vomiting. Normal appetite. No diarrhea and not vomiting blood. No nausea and no constipation. Patient reports no incontinence. No difficulty urinating. No hematuria. No increased frequency. Patient reports no muscle aches. No weakness, no arthralgias, no back pain. No swelling of the extremities. Patient reports no abnormal mole, no jaundice, no rashes. Reports no loss of consciousness. No weakness and no numbness. No seizures, dizziness, or headaches. The patient reports no depression, no sleep disturbance, feeling safe in a relationship and no alcohol abuse. Patient reports on fatigue. Reports no runny nose or sinus pressure. No itching, no hives, and no frequent sneezing. PHYSICAL EXAMINATION: GENERAL: Pleasant gentleman in no acute distress, appears stated age. VITAL SIGNS: Blood pressure 120/75, pulse 86 and regular. HEENT: Normocephalic, atraumatic. NECK: No JVD or bruit. HEART: Regular. LUNGS: Good air excursion. ABDOMEN: Soft, nontender. EXTREMITIES: Pulses 2+. There is no edema. CONSULT REPORT [id number] MICHELLE FERREIRA DIAGNOSTIC DATA: EKG shows nonspecific ST-T changes. IMPRESSION: Acute coronary syndrome, questionable restenosis. PLAN: We will plan for angiography, intervention based on the above. TRANSINT:[id number] Voice Confirmation ID: [id number] DOCUMENT ID: [id number] ANGELLA KIMBLE MD at 0849 CC: [id number] DICTATION DATE: 10/26/19 0853 YARD CLEANER: 10/26/19 1303 DIS IN 10/26/19 [id number] [place] [address]
== END 2019-10-26 12:51 | disposition left against medical advice (07) ==
LOC: D.ER 23:40 → OBSVTIME 10-26 00:43 → D.ICU 10-26 00:43
PROVIDERS: Emergency Medicine; Internal Medicine Interventional Cardiology; ADMIT Family Medicine; ATTEND Family Medicine
DX: I24.9 Acute ischemic heart disease, unspecified (principal); I25.10 Atherosclerotic heart disease of native coronary artery without angina pectoris; E11.65 Type 2 diabetes mellitus with hyperglycemia; F17.200 Nicotine dependence, unspecified, uncomplicated; R07.9 Chest pain, unspecified

== ENCOUNTER 2019-11-13 12:30 | Outpatient (CLI) | payer MEDICARE, OTHER ==
[~2019-11-13] VITALS: Ht 175.3 cm; Wt 83.5 kg
[2019-11-13] VITALS (7 sets, daily range): BP systolic 105–138; BP diastolic 61–90; BMI 26.7
--- NOTE | ~2019-11-13 | HEMODYNAMI ---
PATIENT:MICHELLE FERREIRA MEDICAL RECORD: [id number] : 62 LOCATION:[facility] D.2308 ADMISSION DATE: 11/13/19 Generatedon:11/14/201910:11 Patient name: MICHELLE FERREIRA Patient #: [id number] SSN: [id number] : 1960 Date of study: 11/14/2019 Page: Of Hemodynamic Procedure Report Patient Data Patient Demographics Procedure consent was obtained First Name: MICHELLE Gender: Male Last Name: JHON : 1960 Middle Initial: O Age: 58 year(s) Patient #: [id number] Race: SSN: [id number] Additional ID: [id number] Contact details [address]: [address] [place] [address] State: [place] City: [place] Zip code: [address] Admission Admission Data Admission Date: 11/13/2019 Admission Time: 12:30 Arrival Date: 11/13/2019 Arrival Time: 12:30 Admit Source: Other Insurance Payor: Private Room #: D.2308 health insurance [facility] #: [id number] Height (in.): 68.9 BSA: 1.99 (m2) Height (cm.): 175 BMI: 27.1 (kg/m2) Weight (lbs.): 182.98 Weight (kg.): 83 Lab Results Lab Result Date: 11/14/2019 Lab Result Time: 0:00 Biochemistry Name Units Result Min Max BUN mg/dl 16 --(---*)-- 7 18 Creatinine mg/dl 0.8 --(-*--)-- 0.6 1.3 eGFR ml/min 90 --(*---)-- 90 120 NONAFRICAN CBC Name Units Result Min Max Hemoglobin g/dl 16.2 --(--*-)-- 13.5 17.5 Procedure Procedure Types Cath Procedure Diagnostic Procedure LHC [facility] w/Coronaries FFR/IVUS FFR Initial FFR Additional Sedation Charges Moderate Sedation up to 30 minutes PCI Procedure Coronary Stent Coronary Stent Initial x2 Hemochron ACT Test Procedure Description Procedure Date Procedure Date: 11/14/2019 Procedure Start Time: 9:44 Procedure End Time: 10:06 Procedure Staff Name Function Mathew Berry MD Performing Physician Flory Patel RT Monitor Kristie Villagomez RN Nurse Latisha Wilkerson RT Scrub Procedure Data Cath Procedure Fluoroscopy Diagnostic fluoroscopy Total fluoroscopy Time: 5.3 time: 5.3 min min Diagnostic fluoroscopy Total fluoroscopy dose: 862 dose: 862 mGy mGy Contrast Material Contrast Material Type Amount (ml) Isovue 300 111 Entry Location Entry Primary Successful Side Size Upsize Upsize Entry Closure Pinedo ccessful Closure Location (Fr) 1 (Fr) 2 (Fr) Remarks Device Remarks Radial Right 6 Fr Mechanical artery Short Compression Estimated blood loss: 5 ml Diagnostic catheters Device Type Used For End Catheter Placement DIAGNOSTIC [place] 110cm 5 Multi-vessel Fr catheter ([id number]) Angiography Procedure Complications No complications Procedure Medications Medication Administration Route Dosage Oxygen etCO2 Nasal cannula 2 l/min Lidocaine 2% added to field 20 Heparin Flush Bag added to field 2 bags (1000units/500ml NS) 0.9% NaCl I.V. 100 ml/hr Radial Cocktail added to field 1 syringe (Verapamil 2mg/Nitro 400mcg/Heparin 1500units) Versed I.V. 2 mg Fentanyl I.V. 100 mcg Versed I.V. 2 mg Fentanyl I.V. 50 mcg Heparin Bolus I.V. 4000 units Hemodynamics Rest BSA: 1.99 (m2) HGB: 16.2 (g/dl) O2 Consumption: Estimated: 237.96 (ml/min) O2 Co nsumption indexed: Estimated:119.58 (ml/min/m) Heart Rate: 74 (bpm) Pressure Samples Time Site Value (mmHg) Purpose Heart Use Rate(bpm) 9:48 LV 78/10,28 Snapshot 78 Snapshots Pre Cath Intra NCS Post Cath Vital Signs Time Heart Resp SPO2 etCO2 NIBP (mmHg) Rhythm Pain Sedation Rate (ipm) (%) (mmHg) Status Level (bpm) 8:57:01 74 12 97 34.5 134/84(113) NSR 0 (11) 10(A) , No pain 9:01:11 77 18 98 30.8 125/79(107) NSR 0 (11) 10(A) , No pain 9:05:23 75 16 96 33.8 110/66(87) NSR 0 (11) 10(A) , No pain 9:09:29 72 15 96 36 111/66(83) NSR 0 (11) 10(A) , No pain 9:13:34 72 15 97 37.5 106/70(89) NSR 0 (11) 10(A) , No pain 9:17:38 76 15 96 35.3 109/67(90) NSR 0 (11) 10(A) , No pain 9:21:42 74 15 96 30.8 111/71(92) NSR 0 (11) 10(A) , No pain 9:25:48 72 15 96 34.5 108/69(85) NSR 0 (11) 10(A) , No pain 9:29:54 70 16 96 34.5 114/63(86) NSR 0 (11) 10(A) , No pain 9:33:59 75 16 95 34.5 119/71(95) NSR 0 (11) 10(A) , No pain 9:38:09 74 16 95 36 108/64(86) NSR 0 (11) 10(A) , No pain 9:42:15 70 14 96 36 100/62(78) NSR 0 (11) 9(A) , No pain 9:47:06 73 16 95 36 120/69(99) NSR 0 (11) 9(A) , No pain 9:51:18 82 13 94 39 87/56(69) NSR 0 (11) 9(A) , No pain 9:55:15 84 13 94 39.8 104/61(83) NSR 0 (11) 9(A) , No pain 9:59:19 81 12 94 41.3 109/65(94) NSR 0 (11) 9(A) , No pain 10:03:27 80 12 94 38.3 103/61(84) NSR 0 (11) 10(A) , No pain Medications Time Medication Route Dose Verified Delivered Reason Note s Effectiveness by by 8:59:00 Oxygen etCO2 2 l/min Mathew Flowers used for Nasal Kristi Villagomez jewel bearing turner cannula 8:59:07 Lidocaine 2% added 20ml Mathew Carmona for local to vial Kristi Berry MD anesthetic field 8:59:13 Heparin Flush added 2 bags Mathew Carmona used for Bag to Kristi Berry MD procedure (1000units/500ml field NS) 8:59:21 0.9% NaCl I.V. 100 Mathew Buffie Per physician ml/hr Kristi Villagomez RN 9:32:57 Versed I.V. 2 mg Mathew Garciaie for sedation Kristi Villagomez RN 9:33:05 Fentanyl I.V. 100 mcg Mathew Garciaie for sedation Kristi Villagomez RN 9:48:31 Radial Cocktail added 1 Mathewlisa Carmona for (Verapamil to syringe Kristi Berry MD vasodilation 2mg/Nitro field 400mcg/Heparin 1500units) 9:48:37 Versed I.V. 2 mg Mathew Garciaie for sedation Kristi Villagomez RN 9:48:42 Fentanyl I.V. 50 mcg Mathew Flowers for sedation Kristi Villagomez RN 9:53:42 Heparin Bolus I.V. 4000 Mathew Flowers for veri fied units Kristi Villagomez RN anticoagulation with dr berry Procedure Log Time Note 8:30:05 Procedure Status Urgent Heart Cath (IP). 8:30:07 Kristie Villagomez RN sent for patient. Start room use. 8:30:08 Time tracking: Regular hours (M-F 7:00 - 5:00) 8:30:14 Plan of Care:Hemodynamics will remain stable., Cardiac rhythm will remain stable., Comfort level will be maintained., Respiratory function will remain adequate., Patient/ family verbilizes understanding of procedure., Procedure tolerated without complication., Recovers from procedure without complications.. 8:33:22 Informed consent obtained and on chart 8:34:36 Admit Source: Other 8:34:39 Arrival Date: 11/13/2019 12:30:00 PM 8:35:10 Insurance Payor : Private health insurance 8:35:21 Patient Height : 68.9 inches 8:35:25 Patient Weight : 182.98 lbs 8:36:02 Lab Result : BUN 16 mg/dl 8:36:02 Lab Result : Hemoglobin 16.2 g/dl 8:36:02 Lab Result : eGFR NONAFRICAN 90 ml/min 8:36:02 Lab Result : Creatinine 0.8 mg/dl 8:55:46 Patient received from Med II to CCL 2 Alert and oriented. Tansferred to table in Supine position. 8:55:48 Warm blankets applied, and desiree hugger turned on for patient comfort. 8:55:49 Correct patient and procedure confirmed by team. 8:55:50 ECG and BP/O2 sat monitors applied to patient. 8:55:56 Vital chart was started 8:55:57 Baseline sample Acquired. 8:56:04 Rhythm: sinus rhythm 8:56:05 Full Disclosure recording started 8:56:19 H&P Date Dictated: 11/14/2019 New H&P dictated by physician.. 8:56:20 Pre-procedure instructions explained to patient. 8:56:21 Pre-op teaching completed and patient verbalized understanding. 8:56:22 Family in waiting room. 8:56:24 Patient NPO since Midnight. 8:56:30 Is the patient allergic to Iodine/contrast media? No. 8:56:38 Was the patient premedicated? Yes 8:56:39 Is patient on blood thinner?Yes 8:56:42 ACC The patient was administered the following blood thiners within the last 24 hours: ACCAspirin, ACCPlavix 8:56:45 Patient diabetic? Yes. 8:56:46 If diabetic: On Metformin? Yes 8:57:11 If on Metformin: Last Dose? 11/12/2019 8:57:14 Previous problem with sedation/anesthesia? No ? 8:57:17 Snore? Yes 8:57:18 Sleep apnea? No 8:57:19 Deviated septum? No 8:57:20 Opens mouth fully? Yes 8:57:21 Sticks out tongue? Yes 8:57:50 Airway obstruction? No ? 8:57:57 Dentures? Yes OUT 8:58:12 Pre procedure: right dorsailis pedis pulse 2+ Normal; easily identifiable; not easily obliterated 8:58:15 Pre procedure: left dorsailis pedis pulse 2+ Normal; easily identifiable; not easily obliterated 8:58:16 Patient pain scale 0/10 ?. 8:58:33 IV patent on arrival in left forearm with 0.9% NaCl at O. 8:58:36 Lab results completed and on chart. 8:58:39 Risk of Mortality: 0.21 8:58:43 Risk of blood transfusion: 0.2 8:58:47 Risk of MIKO: 0.8 8:58:55 Right Radial & Right Groin area was prepped with chlora-prep and draped in sterile fashion 8:58:56 Alarms reviewed by R. N. 8:58:57 Sharps counted by scrub and verified by R.N. 8:59:00 Oxygen 2 l/min etCO2 Nasal cannula was administered by Kristie Villagomez RN; used for procedure; Verbal order read back and verified. 8:59:07 Lidocaine 2% 20ml vial added to field was administered by Mathew Berry MD; for local anesthetic; Verbal order read back and verified. 8:59:13 Heparin Flush Bag (1000units/500ml NS) 2 bags added to field was administered by Mathew Berry MD; used for procedure; Verbal order read back and verified. 8:59:21 0.9% NaCl 100 ml/hr I.V. was administered by Kristie Villagomez RN; Per physician; Verbal order read back and verified. 9:25:16 Physician arrived 9:25:21 Right Radial & Right Groin site verified by team. 9:25:24 Fire Safety Assessment: A--An alcohol-based skin anteseptic being used preoperatively., C--Open oxygen or nitrous oxide is being used., D--An ESU, laser, or fiber-optic light is being used. 9:25:28 Physical assessment completed. ASA score P 2 - A patient with mild systemic disease as per Mathew Berry MD. 9:25:49 1) 90+ Normal kidney functon but urine findings or structural abnormalities or genetic trait point to kidney disease. 9:25:52 Maximum allowable contrast dose (3.7 X eGFR X 0.75)249 ml. 9:25:57 Sedation plan: IV Moderate Sedation Medication:Versed, Fentanyl 9:26:03 Use device set Radial Dx or PCI 9:26:04 ACIST Syringe (45265) opened to sterile field. 9:26:04 Medline Cath Pack ([id number]) opened to sterile field. 9:26:04 Bag Decanter (2002) opened to sterile field. 9:26:05 ACIST Hand Control (54852) opened to sterile field. 9:26:05 ACIST Manifold (28929) opened to sterile field. 9:26:06 Tegaderm 4 x 4 (1626W) opened to sterile field. 9:26:06 MBrace Wrist Support ([id number]) opened to sterile field. 9:26:26 SHEATH 6FR RAIN (2809166) opened to sterile field. 9:26:27 EMERALD Guide Wire (282-277) opened to sterile field. 9:30:29 Physician arrived 9:30:30 --------ALL STOP TIME OUT------ 9:30:31 Final Timeout: patient, procedure, and site verified with staff and physician. All members of the team are in agreement. 9:32:02 Zero performed for pressure channel P1 9:32:57 Versed 2 mg I.V. was administered by Kristie Villagomez RN; for sedation; Verbal order read back and verified. 9:33:05 Fentanyl 100 mcg I.V. was administered by Kristie Villagomez RN; for sedation; Verbal order read back and verified. 9:44:54 Procedure started. 9:44:58 Local anesthetic to right radial artery with Lidocaine 2% by Mathew Berry MD.INITIAL ACCESS ONLY 9:45:10 A 6 Fr Short sheath was inserted into the Right Radial artery 9:47:42 A DIAGNOSTIC [place] 110cm 5 Fr catheter (020919) was advanced over the wire and used for Multi-vessel Angiography. 9:48:31 Radial Cocktail (Verapamil 2mg/Nitro 400mcg/Heparin 1500units) 1 syringe added to field was administered by Mathew Berry MD; for vasodilation; Verbal order read back and verified. 9:48:37 Versed 2 mg I.V. was administered by Kristie Villagomez RN; for sedation; Verbal order read back and verified. 9:48:42 Fentanyl 50 mcg I.V. was administered by Kristie Villagomez RN; for sedation; Verbal order read back and verified. 9:48:56 LV hemodynamics recorded. 9:48:57 LV gram done using RYAN 9:49:00 Injector settings: Ml/sec: 5, Volume: 15, 9:49:05 EF : 55 % 9:49:24 RCA angiography performed. 9:49:26 Injector settings: Ml/sec: 3, Volume: 6, 9:50:05 LCA angiography performed. 9:50:08 Injector settings: Ml/sec: 3, Volume: 6, 9:50:10 Catheter removed. 9:50:21 Proceeding to intervention. 9:50:40 INFLATOR Merit BasixCompak (XB9421) opened to sterile field. 9:50:41 Chelsea Verrata Plus pressure wire (01607F) opened to sterile field. 9:50:49 GUIDE 6FR AR 1.0 catheter ([id number]) opened to sterile field. 9:50:56 6 Fr AR 1 guide catheter was inserted over the wire 9:51:00 FFR/IFR wire advanced. 9:51:03 Baseline FFR 1. 9:51:45 GUIDE 6FR XB 3.5 catheter ([id number]) opened to sterile field. 9:53:00 Wire advanced across lesion. 9:53:26 mRCA lesion measured at 0.86 with IFR 9:53:42 Heparin Bolus 4000 units I.V. was administered by Kristie Villagomez RN; for anticoagulation; verified with dr berry Verbal order read back and verified. 9:54:05 Pre PCI Site: [place] mRCA has 80% stenosis. 9:54:08 ACC Pre-intervention DEEPA Flow is 3. 9:55:11 Place stent Inflation Number: 1 A AVEL RX 3.0 x 18 stent ([id number]) was prepped and advanced across the Mid RCA 80. The stent was deployed at 11 JULIA for 0:10 (min:sec) 0. 9:55:58 Stent catheter was removed intact over wire. 9:56:29 6 Fr XB 3.5 guide catheter was inserted over the wire 9:56:58 FFR/IFR wire advanced. 9:57:00 Baseline FFR 1. 9:57:26 Wire advanced across lesion. 10:01:31 Diag1 lesion measured at 0.84 with IFR 10:01:39 ACC Pre-intervention DEEPA Flow is 3. 10:01:54 Pre PCI Site: [place] Diag1 has 80% stenosis. 10:03:24 Place stent Inflation Number: 1 A AVEL RX 2.0 x 8 stent ([id number]) was prepped and advanced across the 1st Diag 80. The stent was deployed at 15 JULIA for 0:10 (min:sec) 0. 10:04:31 Stent catheter was removed intact over wire. 10:04:32 Wire removed. 10:04:32 Guide catheter removed. 10:04:41 Sheath removed intact; hemostasis achieved with Mechanical Compression to the Right Radial artery. 10:04:43 Procedure ended.(Physican Out) 10:04:53 Fluoroscopy time 05.30 minutes. 10:04:57 Fluoroscopy dose: 862 mGy 10:04:57 Flurop Dose total: 862 10:05:02 Dose Area Product 76508 mGy/cm. 10:05:05 Contrast amount:Isovue 300 111ml. 10:05:07 Maximum allowable dose exceeded? No. 10:05:08 Sharps counted by scrub and verified by R.N. 10:05:11 [place] band inflated with 10cc of air. 10:05:13 Insertion/operative site no bleeding no hematoma. 10:05:17 Post right radial artery:stable 10:05:18 Post Procedure Pulses reassessed and unchanged 10:05:22 Post procedure rhythm: unchanged. 10:05:24 Estimated blood loss: 5 ml 10:05:25 Post procedure instruction explained to patient.Patient verbalizes understanding. 10:05:26 Patient needs reinforcement of post procedure teaching. 10:05:59 Procedure type changed to Cath procedure, Diagnostic procedure, LHC, [facility] w/Coronaries, FFR/IVUS, FFR Initial, FFR Additional, Sedation Charges, Moderate Sedation up to 30 minutes, PCI procedure, Coronary Stent, Coronary Stent Initial x2, Hemochron ACT Test 10:06:01 Procedure and supply charges have been captured, reviewed, submitted and are correct. 10:06:05 Procedure Complication : No complications 10:06:07 Vital chart was stopped 10:06:09 [facility] Findings: MVD- PCI performed (see procedure note) 10:06:11 Operative report dictated upon procedure completion. 10:06:11 See physician's report for complete and final results. 10:06:44 Report given to ICU. 10:06:46 Patient transfered to ICU with Stretcher. 10:06:48 Procedure ended. 10:06:48 Full Disclosure recording stopped 10:07:02 ACC-PCI Only Patient was given prescriptions, or instructed by Mathew Berry MD to start/continue the following medications upon discharge: Plavix 10:07:03 End room use (Document Last) 10:07:09 ACT drawn and resulted at 364 seconds. (normal therapeutic range 180-240 seconds). 10:09:41 ZEPHYR REGULAR TR BAND (930047) opened to sterile field. 10:10:30 ZEPHYR LARGE TR BAND (113714) opened to sterile field. 10:11:09 TR BAND Standard ([id number]) opened to sterile field. Intervention Summary Intervention Notes Time ActionType Lesion and Equipment Used Action# Pressure Duration Attributes 9:55:11 Place stent Mid RCA AVEL RX 3.0 x 1 11 00:10 18 stent ([id number]) 10:03:24 Place stent 1st Diag AVEL RX 2.0 x 1 15 00:10 8 stent ([id number]) Device Usage Item Name Manufacture Quantity Catalog Hospital Part Current Minimal Lot# / Number Charge Number Stock Stock Serial# Code ACIST Syringe Acist 1 17598 982566 305333 641116 20 (07812) Medical Systems Inc Medline Cath Medline 1 [id number] 530528 02958 556440 5 Pack ([id number]) Bag Decanter Microtek 1 2001S 526491 67696 956165 5 (2001S) Medical Inc. ACIST Hand Acist 1 43864 277682 870366 776622 5 Control Medical (91718) Systems Inc ACIST Manifold Acist 1 16918 567470 532143 940164 5 (62319) Medical Systems Inc Tegaderm 4 x 4 3M 1 1626W 437621 566255 045516 5 (1626W) MBrace Wrist Advanced 1 140-0250-00 590848 92268 760445 5 Support Vascular ([id number]) Dynamics SHEATH 6FR Cardinal 1 3021635 025242 8053687 202610 5 RAIN (0480997) Health EMERALD Guide Cardinal 1 502-455 184116 363520 524401 5 Wire (502455) Health DIAGNOSTIC Terumo 1 40-0703 032462 036952 145160 5 [place] 110cm 5 Fr catheter (620291) INFLATOR Merit Merit 1 ZQ1020 612776 341925 900326 15 [facility] Medical (XP6650) Chelsea Chelsea 1 94780V 593603 262909031 317804 5 Verrata Plus pressure wire (29410O) GUIDE 6FR AR Medtronic 1 [id number] 004169 04187 474740 1 1.0 catheter (NP5VA30) GUIDE 6FR XB Cardinal 1 [id number] 413743 050303 158352 2 3.5 catheter Health (91243131) AVEL RX 3.0 x Medtronic 1 [id number] 329892 8721141 648502 5 [id number] 18 stent ([id number]) AVEL RX 2.0 x Medtronic 1 [id number] 355432 7491959 908284 5 [id number] 8 stent ([id number]) ZEPHYR REGULAR Cardinal 1 439104 687121 5831035 286362 5 TR BAND Health (480916) ZEPHYR LARGE Cardinal 1 051845 694755 7494074 698124 5 TR BAND Health (541614) TR BAND Terumo 1 [id number] 217668 603579 749331 40 Standard ([id number]) Signature Audit [place] Stage Time Signature Unsigned Intra-Procedure 11/14/2019 Flory Patel 10:10:30 AM RT(R) Intra-Procedure 11/14/2019 Kristie Villagomez RN 10:11:09 AM Intra-Procedure 11/14/2019 Mathew Berry 10:11:25 AM Signatures Performing Physician : Signature : Mathew Berry MD Date : Time : Monitor : Flory Patel RT Signature : Date : Time : Nurse : Kristie Villagomez RN Signature : Date : Time : [facility] [address]
[~2019-11-13 12:30] MED LIST changes: +NEURONTIN800 MG PO
[2019-11-13 13:17] LABS: BASOPHILS 0.5 % (0-2); EOSINOPHILS 1.4 % (0-7); HEMATOCRIT 46.4 % (42.0-54.0); HEMOGLOBIN 16.2 g/dL (13.5-17.5); IMMATURE GRANULOCYTES 0.2 % (0-5); LYMPHOCYTES 27.9 % (15-50); MCH 29.7 pg (26.0-34.0); MCHC 34.9 g/dL (31.0-37.0); MCV 85.1 fL (80.0-100.0); MEAN PLATELET VOLUME 9.2 fL (7.4-10.4); MONOCYTES 4.7 % (2-11); NEUTROPHILS 65.3 % (40-80); PLATELET COUNT 225 10x3/uL (130-400); RBC 5.45 10x6/uL (4.20-6.10); WBC 8.3 10x3/uL (4.8-10.8)
[2019-11-13 13:28] LABS: APTT 28.4 SECONDS (22.8-39.4); CALC OSMOLALITY 280 mosm/kg (275-300); CALCIUM 8.9 mg/dL (8.5-10.1); CHLORIDE - SERUM 103 mmol/L (98-107); CREATININE - SERUM 0.8 mg/dL (0.6-1.3); INR 0.89 (0.85-1.17); POTASSIUM - SERUM 4.2 mmol/L (3.5-5.1); PROTIME 12.1 SECONDS (11.6-15.0); SODIUM 138 mmol/L (136-145); UREA NITROGEN 16 mg/dL (7-18); eGFR NON AFRICAN AMERICAN > 90 mL/min (90-120)
[2019-11-13 13:29] LABS: GLUCOSE 169 mg/dL (74-106)
[2019-11-13 13:30] LABS: D-DIMER-QUANTITATIVE < 0.27 ug/mLFEU (0.20-0.54)
[2019-11-13 13:44] LABS: ALBUMIN 3.7 g/dL (3.4-5.0); ALKALINE PHOSPHATASE 58 U/L (30-120); ALT (SGPT) 20 U/L (10-68); BILIRUBIN - TOTAL 0.34 mg/dL (0.2-1.3); CKMB 1.1 U/L (0.0-3.6); CREATINE KINASE 60 UL (21-232); MAGNESIUM - SERUM 2.2 mg/dL (1.8-2.4); PROTEIN - SERUM 7.3 g/dL (6.4-8.2)
[2019-11-13 13:45] LABS: TROPONIN-I < 0.017 ng/mL (0.000-0.060)
--- NOTE | 2019-11-13 15:15 | NUR ---
patient arrived to unit. no acute distress. states chest pain is 7.10. states it is achy. does not radiate anywhere. 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 symmetrical smile. room air 98%. urinal provided. all monitor working. see adl's. see assessment. will continue to monitor
--- NOTE | 2019-11-13 17:17 | NUR ---
PATIENT REQUESTS ANOTHER TRAY. A&O. DENIES NEEDS DURING THIS TIME
--- NOTE | 2019-11-13 19:00 | NUR ---
REPORT RECEIVED. PT AAOX4, NO ACUTE DISTRESS NOTED PIV TO LT WRIST SALINE LOCK, SEE IV FLOWSHEET. ASSESSMENT COMPLETE, SEE FLOWSHEET. WILL CONTINUE TO MONITOR.
--- NOTE | 2019-11-13 21:00 | NUR ---
FAMILY AT BEDSIDE. PM MEDS TAKEN WITHOUT DIFFICULTY.
--- NOTE | 2019-11-13 23:00 | NUR ---
PT RESTING IN BED, NO ACUTE DISTRESS NOTED. WILL CONTINUE TO MONITOR.
[2019-11-14] VITALS (12 sets, daily range): BP systolic 93–144; BP diastolic 64–107; Ht 175.3 cm; Wt 83.5 kg
--- NOTE | 2019-11-14 01:00 | NUR ---
PT RESTING IN BED, NO ACUTE DISTRESS NOTED AT THIS TIME. WILL CONTINUE TO MONITOR.
--- NOTE | 2019-11-14 03:00 | NUR ---
PT RESTING IN BED, NO ACUTE DISTRESS NOTED.
--- NOTE | 2019-11-14 05:00 | NUR ---
PT PREPPED AND CLIPPED FOR PROCEDURE IN MORNING. CONSENTS SIGNED, NO FURTHER QUESTIONS FROM PATIENT. WILL CONTINUE TO MONITOR.
--- NOTE | 2019-11-14 07:47 | NUR ---
UP IN BED AWAKE AT THIS TIME. VSS. NO ACUTE DISTRESS NOTED. CALL LIGHT IN REACH. WILL CONTINUE PLAN OF CARE.
--- NOTE | 2019-11-14 08:42 | NUR ---
PT PREOPED FOR BRAINER. LEFT VIA BED TO BRAINER AT THIS TIME. VSS. NO ACUTE DISTRESS NOTED. PTS AWARE. WILL CONTINUE PLAN OF CARE.
--- NOTE | 2019-11-14 10:06 | HP ---
PATIENT: MICHELLE FERREIRA MEDICAL RECORD: [id number] ACCOUNT: [id number] LOCATION:[facility] D.2308 : 62 ADMISSION DATE: 11/13/19 PCP: ALONSO MONTALVO HISTORY AND PHYSICAL EXAMINATION DATE OF ADMISSION: 11/13/2019 DIAGNOSES: 1. Unstable angina. 2. Coronary artery disease. 3. Previous percutaneous transluminal coronary angioplasty stent. 4. Hypertension. 5. Hyperlipidemia. 6. Diabetes. HISTORY OF PRESENT ILLNESS: This is a gentleman with a past history of coronary artery disease. Last cardiac stent was May of 2019. For the past 2-3 weeks,he has had increasing episodes of chest pain just like that of his previous angina, dull aching, tightness across the anterior chest, radiating to his jaw and his left arm. It has been worsening. He had a severe episode today. His is still on Plavix as well as aspirin. His pain is just like that of his previous angina. It was totally resolved after the stenting in May. PHYSICAL EXAMINATION: CONSTITUTIONAL/GENERAL APPEARANCE: Well nourished, well developed, appears stated age. EYES: Lids and conjunctivae noninjected. No discharge. No pallor. ENT: Lips within normal limit. No cyanosis. No pallor. NECK: Carotid arteries, bilateral normal upstroke. No bruits. No thrills. No jugular venous pressure or distention. CERVICAL LYMPH NODES: Nontender. Nonenlarged. THYROID: Not enlarged. No nodules. CARDIOVASCULAR: Precordial exam, nondisplaced. No heaves or pericardial thrills. Rate and rhythm, regular. Heart sounds, normal S1, normal S2. No S3, no gallop, no rub. Systolic murmur, not heard. Diastolic murmur, not heard. RESPIRATORY: Respiratory effort, unlabored. Normal curvature. No thoracic deformity. No chest wall tenderness. Percussion, resonant. Auscultation, clear. No wheezes, no rales, no rhonchi. ABDOMEN: Soft, nondistended, nontender. No abdominal pain, no vomiting and normal appetite. MUSCULOSKELETAL: No joint tenderness, normal gait, normal tone. SKIN: Warm and dry. OVERALL IMPRESSION: Class IV unstable angina just like that of his previous angina in a patient with diabetes, hypertension, hyperlipidemia. We will proceed with repeat coronary angiography in a.m. TRANSINT:[id number] Voice Confirmation ID: [id number] DOCUMENT ID: [id number] HISTORY AND PHYSICAL [id number] MICHELLE FERREIRA JEFFREY MD at 1006 CC: [id number] DICTATION DATE: 11/13/19 1310 TRANSFORMER ASSEMBLY SUPERVISOR: 11/13/19 1424 [facility] [address] [id number]
--- NOTE | 2019-11-14 10:16 | NUR ---
RECIEVED POST CATH REPORT, WAITING FOT PT TO ARRIVE BACK TO UNIT.
--- NOTE | 2019-11-14 10:25 | NUR ---
PT RETURNED FROM [employer] AT THIS TIME VIA BED ACCOMPANIED BY [employer] STAFF. FAMILY AT BEDSIDE. UPDATES PROVIDED. MONITORING EQUIPMENT PLACED TO PT. VSS. TR BAND TO RT RADIAL IN PLACE. NO BEEDING, EDEMA, DRAINAGE, OR DISCOLORATION TO SITE. WILL CONTINUE TO OBSERVE.
--- NOTE | 2019-11-14 12:45 | NUR ---
UP IN BED EATING LUNCH AT THIS TIME. VSS. NO ACUTE DISTRESS NOTED. PULSES PRESENT TO ALL EXTREMITIES. PT DENIES ANY CHEST PAIN OR DISCOMFORTS. WILL CONTINUE PLAN OF CARE.
--- NOTE | 2019-11-14 13:30 | NUR ---
TR BAND HAS BEEN IN PLACE FOR 3 HOURS PER ORDERS. HALF OF AIR REMOVED FROM [place] PER ORDERS; AFTERWARDS SCANT BLEEDING NOTED. AIR WHICH WAS REMOVED IS REPLACED AT THIS TIME. WILL KEEP THIS AMOUNT OF AIR IN PLACE FOR 30 MIN BEFORE ATTEMPING AGAIN TO REMOVE VERY SMALL AMOUNTS OF AIR AT A TIME. VSS. WILL CONTINUE TO CLOSELY OBSERVE.
--- NOTE | 2019-11-14 13:36 | NUR ---
PT AND PTS STATE THAT THEY HAVE SOME QUESTIONS FOR DR MALLOY REGARDING PTS DIAGNOSIS. DR MALLOY PAGED AT THIS TIME. WAITING FOR CALLBACK.
--- NOTE | 2019-11-14 13:56 | NUR ---
NO CURRENT BLEEDING NOTED. ALSO RECIEVED CALLBACK FROM DR MALLOY, STATED HE WOULD BE BY IN A LITTLE BIT TO SPEAK WITH PT AND PTS PER REQUEST.
--- NOTE | 2019-11-14 15:36 | NUR ---
AIR RELEASED SLOWLY TO TR BAND TO NOT PROMOTE BLEEDING AT THIS TIME. PT STATES HE IS READY TO GET OUT OF HERE AND GO HOME. PT NOTIFIED THAT HE HAS ORDERS TO GO HOME BUT CANNOT LEAVE UNTIL TR BAND IS REMOVED AND BLEEDING HAS COMPLETLY SUBSIDED. VSS. WILL CONTINUE TO CLOSELY OBSERVE.
--- NOTE | 2019-11-14 16:10 | NUR ---
TR BAND REMOVED. NO BLEEDING NOTED. BANDAID IN PLACE. PER DR MALLOY GO AHEAD AND DC PT HOME WITH NO NEW MEDICATION CHANGES. VSS. WILL DISCHARGE PT SHORTLY. ALSO NOTED APPOINTMENT MADE FOR FOLLOW UP WITH CARDIOLOGY FOR 12/13/[address] KIMBLE AT 1030.
--- NOTE | 2019-11-14 16:18 | NUR ---
800 ML YELLOW URINE NOTED TO URINAL AT THIS TIME. PT PROVIDED OWN LESLIE CARE.
--- NOTE | 2019-11-14 17:01 | NUR ---
PT INSTRUCTIONS WENT OVER WITH THE PT. EDUCATION INCLUDING, MEDICATION, DISCHARGE INSTRUCTIONS F/U APPROINTMENTS AND WOUND CARE. R WRIST SHOWS NO S/SX OF HEMATOMA NOTED. VSS. PT DENIES PAIN AT THIS TIME. PT LEFT VIA AMBULATION WITH A NORMAL AND STEADY GAIT. PT LEFT WITH NO S/SX OF DISTRESS/DISCOMFORT NOTED. WILL CONT POC.
--- NOTE | 2019-11-16 12:54 | DS ---
PATIENT:MICHELLE FERREIRA :62 MEDICAL RECORD: [id number] DISCHARGE SUMMARY ADMISSION DATE: 11/13/19 DISCHARGE DATE: 11/14/19 DATE OF DISCHARGE: 11/14/2019 DIAGNOSES: 1. Unstable angina. 2. Coronary artery disease. 3. Percutaneous transluminal coronary angioplasty stent right coronary artery and left anterior descending this admission. 4. Hypertension. 5. Hyperlipidemia. HOSPITAL COURSE: Mr. Ferreira presents with unstable anginal symptomatology, found to have 2-vessel coronary artery disease of the LAD, diagonal and RCA, underwent successful PTCA stent of both territories with no further angina, was discharged home with the addition of Plavix to his medical regimen. TRANSINT:[id number] Voice Confirmation ID: [id number] DOCUMENT ID: [id number] FLORI MALLOY MD at 1254 CC: [id number] DICTATION DATE: 11/14/19 1009 MUCKING MACHINE OPERATOR: 11/14/19 2235 DEP CLI 11/14/[address] [id number]
--- NOTE | 2019-11-16 12:54 | OP ---
PATIENT NAME: MICHELLE FERREIRA MEDICAL RECORD: [id number] :62 LOCATION:D.ICU ADMISSION DATE: SURGEON: FLORI MALLOY MD DATE OF OPERATION: 11/14/2019 DATE OF SERVICE: 11/14/2019 PROCEDURES: 1. PTCA stent RCA. 2. PTCA stent LAD diagonal. 3. IFR RCA. 4. IFR LAD diagonal. 5. Left heart catheterization. 6. Selective coronary angiography. 7. Left ventriculogram. INDICATION: Unstable angina and coronary artery disease. PROCEDURE IN DETAIL: After informed consent was obtained and after a detailed description of risks, benefits as well as alternative therapies, the patient elected to proceed with angiogram and angioplasty. The right femoral area was prepped and draped in normal sterile fashion. Right femoral artery was cannulated via modified Seldinger technique with placement of 6-Swedish sheath. All catheters exchanged through this sheath. FINDINGS: The left ventriculogram was performed in standard 30-degree RYAN view, reveals good cardiac wall motion, ejection fraction 55%. SELECTIVE CORONARY ANGIOGRAPHY: 1. Left main is with no significant angiographic disease. 2. Left anterior descending has previously placed stents that are widely patent with no significant restenosis. There is a relatively large diagonal that has 80% to 90% stenosis at the ostium and IFR was abnormal at 0.84. 3. Left circumflex has mild irregularities, but no flow-limiting stenosis. 4. Right coronary has 80% stenosis in the mid vessel. An IFR was abnormal at 0.86. PTCA STENT OF THE RCA: The stent used was a 3.0 x 18 mm [place]. Result was 0% residual stenosis. PTCA STENT OF THE LAD DIAGONAL: The stent used was a 2.0 x 8 mm [place]. Result was 0% residual stenosis. OVERALL IMPRESSION: Successful percutaneous transluminal coronary angioplasty stent of the right coronary artery and left anterior descending diagonal, both going from 80% initial stenosis to 0% residual. TRANSINT:[id number] Voice Confirmation ID: [id number] DOCUMENT ID: [id number] OPERATIVE REPORT [id number] MICHELLE FERREIRA FLORI MALLOY MD at 1254 CC: [id number] DICTATION DATE: 11/14/19 1010 SUPERVISOR LOOPING: 11/14/19 1328 DEP CLI 11/14/19 [facility] [address] [place] [address]
== END 2019-11-14 17:21 ==
LOC: D.ER 12:30 → D.ICU 12:30 → D.ER 14:10 → D.ICU 14:10 → EDSTATUS 14:12 → D.ICU 11-14 17:21
PROVIDERS: Family Medicine; ATTEND Internal Medicine Interventional Cardiology
DX: I25.110 Atherosclerotic heart disease of native coronary artery with unstable angina pectoris (principal); E11.9 Type 2 diabetes mellitus without complications; Z79.84 Long term (current) use of oral hypoglycemic drugs; Z72.0 Tobacco use; I10 Essential (primary) hypertension; E78.5 Hyperlipidemia, unspecified

== ENCOUNTER → 2020-03-20 12:53 | Outpatient (CLI) | payer BC, OTHER ==
[2019-11-14 10:03] VITALS: BMI 27.1
--- NOTE | 2020-03-22 01:43 | EC ---
PATIENT:MICHELLE FERREIRA DATE OF SERVICE: 03/20/20 SEX: M MEDICAL RECORD: [id number] DATE OF : 62 [facility] AGE OF PATIENT: 59 ADMISSION DATE: 03/20/20 REFERRING PHYSICIAN: INTERPRETING PHYSICIAN: ANGELLA KIMBLE MD ECHOCARDIOGRAM REPORT ECHO CHARGES 4 ECHO COMPLETE Date: 03/20/20 CLINICAL DIAGNOSIS: HTN/HX OF RECURRENT ANGINA,CAD ASSESS EF AND VALVES ECHOCARDIOGRAPHIC MEASUREMENTS (adult normal given) AC root (d.<3.7cm) 2.7 cm LV Septum d (<1.2 cm> 1.1 cm Valve Excursion 1.3 cm LV Septum (systole) 1.3 cm Left Atria (s.<4.0cm> 3.0 cm LVPW d(<1.2cm) 1.2 cm RV (d.<2.3cm) 3.4 cm LVPW (sytole) 1.4 cm LV diastole(<5.6CM) 4.9 cm MV E-F(>70mm/sec) cm LV systole 3.7 cm LVOT Diameter 2.0 cm MV exc.(>10mm) 1.6 cm Est.ejection fraction (50-75%) % DOPPLER: LVIT cm/sec A 42.0 cm/sec E 99.0 cm/sec LA cm/sec RVSP 19 mmHg LVOT 104 cm/sec AOP1/2T m/s Asc. Ao 151 cm/sec RVOT 78 cm/sec RA cm/sec PA 125 cm/sec AV Gradient Peak 9.09 mmHg AV Mean 4.74 mmHg AV Area 2.3 cm MV Gradient Peak 7.32 mmHg MV Mean 2.41 mmHg MV Area cm COMMENTS: Music Professor: 2 KATH HINOJOSA Patient Admitting Clerk: 3 Dr. Cuevas TAPE# PACS Pericardial Effusion N DATE OF SERVICE: Adequate 2D, color flow imaging, spectral Doppler, and M-Mode No LVH. LV internal dimensions are normal. Wall motion is normal. EF is greater than or equal to 55%. Aortic valve is tricuspid. No evidence of stenosis by Doppler interrogation. Left atrium is normal at 3.0 cm. Mitral valve shows no prolapse. Trace MR. Right-sided chambers are grossly normal. Trace TR. ECHOCARDIOGRAM REPORT [id number] MICHELLE FERREIRA TRANSINT:[id number] Voice Confirmation ID: [id number] DOCUMENT ID: [id number] ANGELLA KIMBLE MD at 0143 CC: [id number] DICTATION DATE: 03/21/20825 FUR VAULT ATTENDANT: 03/21/20 1306 [facility] CLI 03/20/[address] [id number] [place] [id number]
== END | disposition home or self-care (01) ==
LOC: D.HCCECHO 12:53
PROVIDERS: ATTEND Internal Medicine Interventional Cardiology
DX: I10 Essential (primary) hypertension (principal)

== ENCOUNTER 2020-05-06 20:42 | Emergency (ER) | payer BC, OTHER ==
[~2020-05-06] VITALS: Ht 175.3 cm; Wt 83.6 kg
[2020-05-06 20:46] VITALS: Ht 175.3 cm; Wt 83.6 kg
[2020-05-06 21:17] LABS: BASOPHILS 0.5 % (0-2); EOSINOPHILS 1.2 % (0-7); HEMATOCRIT 44.7 % (42.0-54.0); IMMATURE GRANULOCYTES 0.3 % (0-5); LYMPHOCYTES 34.2 % (15-50); MCH 29.4 pg (26.0-34.0); MCHC 33.6 g/dL (31.0-37.0); MCV 87.5 fL (80.0-100.0); MEAN PLATELET VOLUME 9.3 fL (7.4-10.4); MONOCYTES 4.9 % (2-11); NEUTROPHILS 58.9 % (40-80); PLATELET COUNT 195 10x3/uL (130-400); RBC 5.11 10x6/uL (4.20-6.10); RDW 13.6 % (11.5-14.5)
[2020-05-06 21:25] LABS: APTT 29.3 SECONDS (22.8-39.4); INR 0.93 (0.85-1.17); PROTIME 12.5 SECONDS (11.6-15.0)
[2020-05-06 21:33] LABS: CALC OSMOLALITY 279 mosm/kg (275-300); CALCIUM 8.9 mg/dL (8.5-10.1); CARBON DIOXIDE 23.7 mmol/L (21.0-32.0); CHLORIDE - SERUM 104 mmol/L (98-107); CREATININE - SERUM 0.9 mg/dL (0.6-1.3); GLUCOSE 191 mg/dL (74-106); POTASSIUM - SERUM 3.5 mmol/L (3.5-5.1); SODIUM 136 mmol/L (136-145); UREA NITROGEN 20 mg/dL (7-18); eGFR NON AFRICAN AMERICAN > 90 mL/min (90-120)
[2020-05-06 22:03] LABS: ALBUMIN 3.7 g/dL (3.4-5.0); ALKALINE PHOSPHATASE 62 U/L (30-120); ALT (SGPT) 21 U/L (10-68); BILIRUBIN - TOTAL 0.31 mg/dL (0.2-1.3); CKMB 1.1 U/L (0.0-3.6); CREATINE KINASE 87 UL (21-232); MAGNESIUM - SERUM 2.1 mg/dL (1.8-2.4)
[2020-05-06 22:08] LABS: TROPONIN-I < 0.017 ng/mL (0.000-0.060)
[2020-05-07 00:24] VITALS: BP 120/76
== END 2020-05-07 00:24 | disposition home or self-care (01) ==
LOC: D.ER 20:42
PROVIDERS: Emergency Medicine
DX: R07.89 Other chest pain (principal); E11.9 Type 2 diabetes mellitus without complications; I25.2 Old myocardial infarction; K21.9 Gastro-esophageal reflux disease without esophagitis; Z79.84 Long term (current) use of oral hypoglycemic drugs; Z72.0 Tobacco use

== ENCOUNTER 2020-05-20 07:50 | Day surgery (SDC) | payer BC, OTHER ==
[~2020-05-20] VITALS: Ht 175.3 cm; Wt 86.5 kg
--- NOTE | ~2020-05-20 | HEMODYNAMI ---
PATIENT:MICHELLE FERREIRA MEDICAL RECORD: [id number] : 62 LOCATION:DDARLINE ADMISSION DATE: 05/20/20 Generatedon:05/20/202010:04 Patient name: MICHELLE FERREIRA Patient #: [id number] SSN: [id number] : 1960 Date of study: 05/20/2020 Page: Of Hemodynamic Procedure Report Patient Data Patient Demographics Procedure consent was obtained First Name: MICHELLE Gender: Male Last Name: JHON : 1960 Middle Initial: O Age: 59 year(s) Patient #: [id number] Race: SSN: [id number] Additional ID: [id number] Contact details Address: [address] [place] [address] State: [place] City: [place] Zip code: [address] Past Medical History Allergies Allergen Reaction Date Comments Reported Other allergy 05/20/2020 N Admission Admission Data Admission Date: 05/20/2020 Admission Time: 7:50 Lab Results Lab Result Date: 05/20/2020 Lab Result Time: 0:00 Biochemistry Name Units Result Min Max BUN mg/dl 24 --(----)-* 7 18 Creatinine mg/dl 0.8 --(-*--)-- 0.6 1.3 eGFR ml/min 90 --(*---)-- 90 120 NONAFRICAN CBC Name Units Result Min Max Hematocrit % 46 --(-*--)-- 42 54 Hemoglobin g/dl 15.3 --(-*--)-- 13.5 17.5 Procedure Procedure Types Cath Procedure Diagnostic Procedure [facility] w/Coronaries Sedation Charges Moderate Sedation up to 15 minutes PCI Procedure Coronary Stent Coronary Stent Initial Hemochron ACT Test Procedure Description Procedure Date Procedure Date: 05/20/2020 Procedure Start Time: 9:35 Procedure End Time: 10:00 Procedure Staff Name Function Jung Mccoy MD Performing Physician Latisha Wilkerson RT Monitor Fidelia Stevens RT Scrub Buffie Villagomez RN Nurse Indication CAD Procedure Data Cath Procedure Fluoroscopy Diagnostic fluoroscopy Total fluoroscopy Time: 9.3 time: 9.3 min min Diagnostic fluoroscopy Total fluoroscopy dose: dose: 1260 mGy 1260 mGy Contrast Material Contrast Material Type Amount (ml) Isovue 300 120 Entry Location Entry Primary Successful Side Size Upsize Upsize Entry Closure Pinedo ccessful Closure Location (Fr) 1 (Fr) 2 (Fr) Remarks Device Remarks Radial Right 5 Fr Mechanical artery Compression Estimated blood loss: 10 ml Diagnostic catheters Device Type Used For End Catheter Placement DIAGNOSTIC [place] 110cm 5 Procedure Fr catheter ([id number]) Procedure Complications No complications Procedure Medications Medication Administration Route Dosage Oxygen etCO2 Nasal cannula 2 l/min Lidocaine 2% added to field 20 Heparin Flush Bag added to field 2 bags (1000units/500ml NS) 0.9% NaCl I.V. 100 ml/hr Versed I.V. 1 mg Fentanyl I.V. 50 mcg Radial Cocktail I.A. 1 syringe (Verapamil 2mg/Nitro 400mcg/Heparin 1500units) Heparin Bolus I.V. 4000 units Versed I.V. 1 mg Fentanyl I.V. 50 mcg Hemodynamics Rest Heart Rate: 79 (bpm) Pressure Samples Time Site Value (mmHg) Purpose Heart Use Rate(bpm) 9:36 LV 111/36,35 Snapshot 87 Gradients Valve Time Site Site Mean SEP/DFP Peak To Heart Use 1 2 (mmHg) (sec/min) Peak Rate (mmHg) (bpm) Aortic 9:37 LV AO 87 Snapshots Pre Cath Intra NCS Post Cath Vital Signs Time Heart Resp SPO2 etCO2 NIBP (mmHg) Rhythm Pain Sedation Rate (ipm) (%) (mmHg) Status Level (bpm) 9:22:17 78 19 97 0 124/80(102) NSR 0 (11) 10(A) , No pain 9:26:27 81 17 97 29.9 123/78(100) NSR 0 (11) 10(A) , No pain 9:30:37 82 14 95 31.4 125/77(99) NSR 0 (11) 10(A) , No pain 9:34:47 83 14 94 30.7 124/69(101) NSR 0 (11) 10(A) , No pain 9:38:56 93 13 91 31.4 119/79(101) NSR 0 (11) 10(A) , No pain 9:43:02 85 13 92 32.9 113/73(89) NSR 0 (11) 10(A) , No pain 9:47:12 83 13 94 32.9 110/68(85) NSR 0 (11) 10(A) , No pain 9:51:20 83 13 94 33.7 113/68(92) NSR 0 (11) 10(A) , No pain 9:55:28 84 13 95 33.7 117/73(96) NSR 0 (11) 10(A) , No pain 9:59:38 80 13 96 32.9 122/72(93) NSR 0 (11) 10(A) , No pain Medications Time Medication Route Dose Verified Delivered Reason Note s Effectiveness by by 9:22:20 Oxygen etCO2 2 l/min Jung Garciaie used for Nasal [facility] Theodore Villagomez RN procedure cannula 9:22:27 Lidocaine 2% added 20ml Jung Jung for local to vial [facility] anesthetic field MD CLARK 9:22:35 Heparin Flush added 2 bags Jung Feng used for Bag to [facility] procedure (1000units/500ml field MD CLARK NS) 9:22:44 0.9% NaCl I.V. 100 Jung Garciaie Per physician ml/hr [facility] Theodore Villagomez RN, MD 9:34:55 Versed I.V. 1 mg Jung Garciaie for sedation [facility] Theodore Villagomez RN, MD 9:35:00 Fentanyl I.V. 50 mcg Jung Garciaie for sedation [facility] Theodore Villagomez RN, MD 9:36:33 Radial Cocktail I.A. 1 Jung Jung for (Verapamil syringe [facility] vasodilation 2mg/Nitro MD CLARK 400mcg/Heparin 1500units) 9:43:00 Heparin Bolus I.V. 4000 Jung Garciaie for veri fied units [facility] Theodore Villagomez RN anticoagulation with dr MD donato' 9:44:45 Versed I.V. 1 mg Jung Garciaie for sedation [facility] Theodore Villagomez RN, MD 9:44:49 Fentanyl I.V. 50 mcg Jung Garciaie for sedation [facility] Theodore Villagomez RN, MD Procedure Log Time Note 9:00:13 Informed consent obtained and on chart 9:01:59 Indication : CAD 9:02:19 Procedure Status Elective Heart Cath (OP). 9:02:27 Plan of Care:Hemodynamics will remain stable., Cardiac rhythm will remain stable., Comfort level will be maintained., Respiratory function will remain adequate., Patient/ family verbilizes understanding of procedure., Procedure tolerated without complication., Recovers from procedure without complications.. 9:02:31 Time tracking: Regular hours (M-F 7:00 - 5:00) 9:05:25 Latihsa HORNE(R) sent for patient. Start room use. 9:: Lab Result : Hemoglobin 15.3 g/dl :: Lab Result : Hematocrit 46 % 9:: Lab Result : BUN 24 mg/dl : Lab Result : Creatinine 0.8 mg/dl 9:: Lab Result : eGFR NONAFRICAN 90 ml/min 9:14:02 Patient received from Pre/Post Procedure Room to CCL 1 Alert and oriented. Tansferred to table in Supine position. 9:14:04 Warm blankets applied, and desiree hugger turned on for patient comfort. 9:14:05 Correct patient and procedure confirmed by team. 9:14:06 ECG and BP/O2 sat monitors applied to patient. 9:14:22 Patient allergic to Other allergyPCN 9:21:12 Vital chart was started 9:22:20 Oxygen 2 l/min etCO2 Nasal cannula was administered by Kristie Villagomez RN; used for procedure; Verbal order read back and verified. 9:22:27 Lidocaine 2% 20ml vial added to field was administered by Jung Mccoy MD; for local anesthetic; Verbal order read back and verified. 9:22:35 Heparin Flush Bag (1000units/500ml NS) 2 bags added to field was administered by Jung Mccoy MD; used for procedure; Verbal order read back and verified. 9:22:44 0.9% NaCl 100 ml/hr I.V. was administered by Kristie Villagomez RN; Per physician; Verbal order read back and verified. 9:33:05 Baseline sample Acquired. 9:33:09 Rhythm: sinus rhythm 9:33:11 Full Disclosure recording started 9:33:26 H&P Date Dictated: 05/13/2020 Within 30 days and on chart., H&P Addendum completed by physician on day of procedure. (MUST COMPLETE FOR ALL OUTPATIENTS). 9:33:28 Pre-procedure instructions explained to patient. 9:33:29 Family in waiting room. 9:33:31 Patient NPO since Midnight. 9:33:36 Was the patient premedicated? Yes 9:33:37 Is patient on blood thinner?Yes 9:33:41 ACC The patient was administered the following blood thiners within the last 24 hours: ACCPlavix 9:33:43 Patient diabetic? Yes. 9:33:44 If diabetic: On Metformin? Yes 9:33:54 If on Metformin: Last Dose? 05/14/2020 9:34:00 Snore? Yes 9:34:02 Sleep apnea? No 9:34:12 Dentures? No ? 9:34:20 Patient pain scale 0/10 ?. 9:34:27 IV patent on arrival in left forearm with 0.9% NaCl at [facility]. 9:34:31 Lab results completed and on chart. 9:34:43 Right Radial & Right Groin area was prepped with chlora-prep and draped in sterile fashion 9:34:44 Alarms reviewed by R. N. 9:34:44 Sharps counted by scrub and verified by R.N. 9:34:46 Physician arrived 9:34:47 --------ALL STOP TIME OUT------ 9:34:48 Final Timeout: patient, procedure, and site verified with staff and physician. All members of the team are in agreement. 9:34:55 Versed 1 mg I.V. was administered by Kristie Villagomez RN; for sedation; Verbal order read back and verified. 9:34:58 Right Radial & Right Groin site verified by team. 9:35:00 Fentanyl 50 mcg I.V. was administered by Kristie Villagomez RN; for sedation; Verbal order read back and verified. 9:35:04 Fire Safety Assessment: A--An alcohol-based skin anteseptic being used preoperatively., C--Open oxygen or nitrous oxide is being used., D--An ESU, laser, or fiber-optic light is being used. 9:35:08 Physical assessment completed. ASA score P 2 - A patient with mild systemic disease as per Jung Mccoy MD. 9:35:11 1) 90+ Normal kidney functon but urine findings or structural abnormalities or genetic trait point to kidney disease. 9:35:16 Maximum allowable contrast dose (3.7 X eGFR X 0.75)250 ml. 9:35:20 Sedation plan: IV Moderate Sedation Medication:Versed, Fentanyl 9:35:24 Use device set Radial Dx or PCI 9:35:27 Procedure started. 9:35:41 Local anesthetic to right radial artery with Lidocaine 2% by Jung Mccoy MD.INITIAL ACCESS ONLY 9:35:53 A 5 Fr sheath was inserted into the Right Radial artery 9:36:03 j wire advanced. 9:36:06 ACIST Syringe (97092) opened to sterile field. 9:36:06 Medline Cath Pack ([id number]) opened to sterile field. 9:36:07 Bag Decanter (2002) opened to sterile field. 9:36:07 ACIST Hand Control (24320) opened to sterile field. 9:36:08 ACIST Manifold (78677) opened to sterile field. 9:36:08 Tegaderm 4 x 4 (1626W) opened to sterile field. 9:36:10 MBrace Wrist Support ([id number]) opened to sterile field. 9:36:19 A DIAGNOSTIC [place] 110cm 5 Fr catheter (513808) was advanced over the wire and used for Procedure. 9:36:21 SHEATH 6FR RAIN ([id number]) opened to sterile field. 9:36:27 EMERALD Guide Wire (502-619) opened to sterile field. 9:36:33 Radial Cocktail (Verapamil 2mg/Nitro 400mcg/Heparin 1500units) 1 syringe I.A. was administered by Jung Mccoy MD; for vasodilation; Verbal order read back and verified. 9:36:48 LV angiography performed. 9:36:52 LV gram done using RYAN 9:37:06 EF : 55 % 9:37:08 LV hemodynamics recorded. 9:37:16 LCA angiography performed. 9:37:36 RCA angiography performed. 9:42:01 GUIDE 6FR EBU 3.5 catheter ([id number]) opened to sterile field. 9:42:02 WHISPER 300cm guide wire ([id number]) opened to sterile field. 9:42:03 INFLATOR Merit BasixCompak (YB5612) opened to sterile field. 9:42:18 6 Fr EBU3.5 guide catheter was inserted over the wire 9:43:00 Heparin Bolus 4000 units I.V. was administered by Kristie Villagomez RN; for anticoagulation; verified with dr donato' Verbal order read back and verified. 9:43:32 Guide catheter removed. 9:43:45 6 Fr XBLAD 4 guide catheter was inserted over the wire 9:44:31 WHISPER wire advanced. 9:44:45 Versed 1 mg I.V. was administered by Kristie Villagomez RN; for sedation; Verbal order read back and verified. 9:44:49 Fentanyl 50 mcg I.V. was administered by Kristie Villagomez RN; for sedation; Verbal order read back and verified. 9:47:50 GUIDE 6FR XBLAD 4.0 catheter ([id number]) opened to sterile field. 9:53:20 Place stent Inflation Number: 1 A AVEL RX 3.0 x 12 stent ([id number]) was prepped and advanced across the Mid LAD 80. The stent was deployed at 14 JULIA for 0:19 (min:sec) 0. 9:54:06 Inflation number: 2 The stent balloon was then re-inflated across the Mid LAD 0 to 6 JULIA for 0:19 (min:sec) . 9:54:31 Inflation number: 3 The stent balloon was then re-inflated across the Mid LAD to 8 JULIA for 0:20 (min:sec) . 9:55:22 Inflation number: 4 The stent balloon was then re-inflated across the Mid LAD to 12 JULIA for 0:20 (min:sec) . 9:56:23 ZEPHYR REGULAR TR BAND (690083) opened to sterile field. 9:56:31 Balloon removed over the wire. 9:56:32 Wire removed. 9:56:43 Sheath removed intact; hemostasis achieved with Mechanical Compression to the Right Radial artery. 9:56:50 Procedure ended.(Physican Out) 9:57:15 Fluoroscopy time 09.30 minutes. 9:57:20 Fluoroscopy dose: 1260 mGy 9:57:20 Flurop Dose total: 1260 9:57:27 Dose Area Product 30426 mGy/cm. 9:57:32 Contrast amount:Isovue 300 120ml. 9:57:45 Maximum allowable dose exceeded? No. 9:57:46 Sharps counted by scrub and verified by R.N. 9:57:51 [place] band inflated with 10cc of air. 9:57:53 Insertion/operative site no bleeding no hematoma. 9:57:57 Post-op/insertion site Right Radial artery dressed using a 4 x 4 and Tegaderm. 9:58:00 Post Procedure Pulses reassessed and unchanged 9:58:05 Post-procedure physical assessment completed. ASA score P 2 - A patient with mild systemic disease as per Jugn Mccoy MD. 9:58:09 Post procedure rhythm: unchanged. 9:58:12 Estimated blood loss: 10 ml 9:58:14 Post procedure instruction explained to patient.Patient verbalizes understanding. 9:59:25 Procedure type changed to Cath procedure, Diagnostic procedure, LHC, [facility] w/Coronaries, Sedation Charges, Moderate Sedation up to 15 minutes, PCI procedure, Coronary Stent, Coronary Stent Initial, Hemochron ACT Test 9:59:51 Procedure and supply charges have been captured, reviewed, submitted and are correct. 10:00:37 Procedure Complication : No complications 10:00:40 Vital chart was stopped 10:00:45 [facility] Findings: MVD- PCI performed (see procedure note) 10:00:50 Operative report dictated upon procedure completion. 10:00:51 See physician's report for complete and final results. 10:00:53 Report given to Pre/Post Procedure Room. 10:00:57 Patient transfered to Pre/Post Procedure Room with Stretcher. 10:00:59 Procedure ended. 10:00:59 Full Disclosure recording stopped 10:01:02 End room use (Document Last) 10:01:57 ACT drawn and resulted at 357 seconds. (normal therapeutic range 180-240 seconds). 10:03:19 End room use (Document Last) 10:03:57 End room use (Document Last) Intervention Summary Intervention Notes Time ActionType Lesion and Equipment Used Action# Pressure Duration Attributes 9:53:20 Place stent Mid LAD AVEL RX 3.0 x 1 14 00:19 12 stent ([id number]) 9:54:06 Reinflate Mid LAD AEVL RX 3.0 x 2 6 00:19 stent 12 stent balloon ([id number]) 9:54:31 Reinflate Mid LAD AVEL RX 3.0 x 3 8 00:20 stent 12 stent balloon ([id number]) 9:55:22 Reinflate Mid LAD AVEL RX 3.0 x 4 12 00:20 stent 12 stent balloon ([id number]) Device Usage Item Name Manufacture Quantity Catalog Hospital Part [facility] Lot# / Number Charge Number Stock Stock Serial# Code ACIST Syringe Acist 1 10152 905274 311855 947826 20 (42434) Medical Systems Inc Medline Cath Medline 1 [id number] 345732 92460 498583 5 Pack ([id number]) Bag Decanter Microtek 1 260115 68033 178634 5 () Medical Inc. ACIST Hand Acist 1 71594 085464 177881 754952 5 Control Medical (16261) Systems Inc ACIST Manifold Acist 1 82548 355641 568239 026008 5 (89920) Medical Systems Inc Tegaderm 4 x 4 3M 1 1626W [id number] 515712 569720 5 (1626W) MBrace Wrist Advanced 1 140-0250-00 660886 06604 565716 5 Support Vascular ([id number]) Dynamics DIAGNOSTIC Terumo 1 40-5013 564655 398467 162106 5 [place] 110cm 5 Fr catheter (601023) SHEATH 6FR Cardinal 1 4742140 312063 2478987 590588 5 RAIN (7598368) [facility] Guide Cardinal 1 502-455 986553 435599 202818 5 Wire (502-455) [facility] GUIDE 6FR EBU Medtronic 1 [id number] 396955 53164 976515 3 3.5 catheter ([id number]) WHISPER 300cm [place] 1 [id number] 435357 634489 715946 5 guide wire Vascular ([id number]) INFLATOR Merit Merit 1 FS7837 385499 754520 467266 15 [facility] (XY3105) GUIDE 6FR Cardinal 1 [id number] 368569 412491 654283 3 XBLAD 4.0 Health catheter (89782592) AVEL RX 3.0 x Medtronic 1 [id number] 694354 0756886 479020 5 [id number] 12 stent ([id number]) ZEPHYR REGULAR Cardinal 1 968289 034284 6717720 694384 5 [facility] Dot VN (831621) Signature Audit [place] Stage Time Signature Unsigned Intra-Procedure 05/20/2020 Latisha Wilkerson 10:03:19 AM RT(R) Intra-Procedure 05/20/2020 Kristie Villagomez RN 10:03:57 AM Intra-Procedure 05/20/2020 Jung Fox 10:04:19 AM Theodore CLARK [facility] [address] [place] [address]
[2020-05-20] MEDS ORDERED: TOPAMAX50 MG PO (08:15)
[2020-05-20] MEDS ORDERED: ISOSORBIDE MONO30 M1 PO (08:16)
[2020-05-20] MEDS ORDERED: GLUCOTROL XL 1010 MG PO (08:17)
[2020-05-20 08:34] VITALS: BP 134/76; Ht 175.3 cm; Wt 86.5 kg
[2020-05-20 08:34] LABS: BASOPHILS 0.7 % (0-2); EOSINOPHILS 1.9 % (0-7); HEMOGLOBIN 15.3 g/dL (13.5-17.5); IMMATURE GRANULOCYTES 0.3 % (0-5); LYMPHOCYTES 25.4 % (15-50); MCHC 33.3 g/dL (31.0-37.0); MCV 87.3 fL (80.0-100.0); MONOCYTES 5.6 % (2-11); NEUTROPHILS 66.1 % (40-80); PLATELET COUNT 188 10x3/uL (130-400); RBC 5.27 10x6/uL (4.20-6.10); RDW 13.4 % (11.5-14.5); WBC 8.9 10x3/uL (4.8-10.8)
[2020-05-20 08:43] LABS: CALC OSMOLALITY 286 mosm/kg (275-300); CALCIUM 9.2 mg/dL (8.5-10.1); CARBON DIOXIDE 26.2 mmol/L (21.0-32.0); CHLORIDE - SERUM 108 mmol/L (98-107); CREATININE - SERUM 0.8 mg/dL (0.6-1.3); GLUCOSE 177 mg/dL (74-106); POTASSIUM - SERUM 4.1 mmol/L (3.5-5.1); SODIUM 140 mmol/L (136-145); UREA NITROGEN 24 mg/dL (7-18); eGFR NON AFRICAN AMERICAN > 90 mL/min (90-120)
[2020-05-20 08:54] LABS: CHOL - HDL RATIO 6.7 ratio (2.3-4.9)
--- NOTE | 2020-05-20 10:13 | NUR ---
PT ARRIVED BY STRETCHER. PLACED ON MONITORS. DR. KIMBLE ROUNDED AND SPOKE WITH PT'S . ASSESSMENT COMPLETED. VSS. CALL LIGHT WITHIN REACH.
--- NOTE | 2020-05-20 10:28 | NUR ---
PT RESTING COMFORTABLY. VSS. RIGHT WRIST Z BAND IN PLACE. NO BLEEDING/HEMATOMA NOTED. CALL LIGHT WITHIN REACH. VSS. FAMILY AT BEDSIDE. NO NEEDS AT THIS TIME. CAP REFILL TO RIGHT HAND < 3 SECS.
--- NOTE | 2020-05-20 11:00 | NUR ---
RIGHT WRIST Z BAND IN PLACE. NO BLEEDING/HEMATOMA NOTED. CALL LIGHT WITHIN REACH. VSS AT THIS TIME.
--- NOTE | 2020-05-20 11:30 | NUR ---
RIGHT WRIST Z BAND IN PLACE. NO BLEEDING/HEMATOMA NOTED. CALL LIGHT WITHIN REACH. VSS AT THIS TIME.
--- NOTE | 2020-05-20 12:00 | NUR ---
RIGHT WRIST Z BAND IN PLACE. NO BLEEDING/HEMATOMA NOTED. PT DENIES NAUSEA/PAIN. SET UP WITH WATER AND COFFEE AT THIS TIME. CALL LIGHT WITHIN REACH.
--- NOTE | 2020-05-20 12:45 | NUR ---
2cc OF AIR REMOVED FROM Z BAND. NO BLEEDING/HEMATOMA NOTED. VSS. CALL LIGHT WITHIN REACH.
--- NOTE | 2020-05-20 12:59 | NUR ---
3cc OF AIR REMOVED FROM Z BAND. NO BLEEDING/HEMATOMA NOTED. CALL LIGHT WITHIN REACH. PT DENIES NAUSEA. SET UP WITH SANDWICH TRAY AT THIS TIME. WILL CONTINUE TO MONITOR.
--- NOTE | 2020-05-20 13:15 | NUR ---
5cc OF AIR REMOVED FROM Z BAND. NO BLEEDING/HEMATOMA NOTED. CALL LIGHT WITHIN REACH. VSS AT THIS TIME. CALL LIGHT WITHIN REACH.
--- NOTE | 2020-05-20 13:30 | NUR ---
Z BAND REMOVED AND DRESSING APPLIED. NO BLEEDING/HEMATOMA NOTED. RIGHT WRIST BRACE IN PLACE.
--- NOTE | 2020-05-20 13:45 | NUR ---
PIV D/C'D WITH CATH TIP INTACT. TOLERATED WELL. RIGHT WRIST DRESSING C/D/I. NO S/S OF HEMATOMA NOTED. PT INSTRUCTED TO GET UP AND DRESSED AT THIS TIME. FAMILY AT BEDSIDE TO ASSIST.
--- NOTE | 2020-05-20 13:50 | NUR ---
PT AMBULATED TO RESTROOM. VOIDED WITHOUT DIFFICULTY. STEADY GAIT NOTED. DISCUSSED DISCHARGE INSTRUCTIONS WITH PT AND PT'S FAMILY. THEY VOICED UNDERSTANDING.
--- NOTE | 2020-05-20 14:00 | NUR ---
PT TAKEN DOWN TO VEHICLE BY WHEELCHAIR. NO S/S OF DISTRESS NOTED. ALL BELONGINGS AND PAPERWORK IN HAND.
--- NOTE | 2020-05-24 11:30 | OP ---
PATIENT NAME: MICHELLE FERREIRA MEDICAL RECORD: [id number] :62 LOCATION:D.CAT ADMISSION DATE: SURGEON: ANGELLA KIMBLE MD DATE OF OPERATION: 05/20/2020 PROCEDURE: Left heart catheterization, selective coronary angiography, right radial approach. CATHETERS: Radial sheath, [place] catheter. The procedure was well tolerated. The patient returned to the [place], sheath removed. TR band is placed. FINDINGS: Left ventriculography in 30-degree RYAN view: Normal wall motion and normal systolic function. CORONARY ANATOMY: LEFT MAIN: Left main is free of disease. LAD: Has a discrete stenosis of 80% to 90% mid portion previously placed stent. CIRCUMFLEX: Free of disease, widely patent stent. RIGHT CORONARY ARTERY: Widely patent, free of restenosis or progression of alt[place] disease. PLAN: Intervention LAD momentarily. DESCRIPTION OF PROCEDURE: A 5-Serbian sheath was exchanged for a 6-Serbian sheath. XB LAD 4 guiding catheter provided good guide catheter support followed by a 300 cm whisper wire placed across the tightly occluded LAD down to this portion of vessel. Stent deployed was a 3.0 x 12 mm [place] drug eluting stent up to 16 atmospheres. Final angiography shows excellent resolution of 80-90% stenosis, no significant residual. DEEPA flow was 3 throughout the procedure. Heparin was used during the case. The patient was previously on Plavix. Sheath closed with TR band. 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
== END 2020-05-20 14:00 | disposition home or self-care (01) ==
LOC: D.CATH 07:50 → EDSTATUS 09:30 → D.CATH 09:30
PROVIDERS: ATTEND Internal Medicine Interventional Cardiology
DX: I25.119 Atherosclerotic heart disease of native coronary artery with unspecified angina pectoris (principal); E11.9 Type 2 diabetes mellitus without complications; Z79.84 Long term (current) use of oral hypoglycemic drugs; Z72.0 Tobacco use

== ENCOUNTER 2021-02-05 19:41 | Emergency (ER) | payer BC, OTHER ==
[~2021-02-05] VITALS: Ht 175.3 cm; Wt 83.9 kg
[~2021-02-05 19:41] MED LIST changes: +BENTYL 20 MG TA20 MG PO; +GLUCOTROL XL 1010 MG PO; +IBUPROFEN800 MG PO; +ISOSORBIDE MONO30 M1 PO; +TOPAMAX50 MG PO
[2021-02-05 20:00] VITALS: Ht 175.3 cm; Wt 83.9 kg
[2021-02-05 20:36] LABS: BASOPHILS 0.4 % (0-2); HEMATOCRIT 45.9 % (42.0-54.0); HEMOGLOBIN 15.3 g/dL (13.5-17.5); IMMATURE GRANULOCYTES 0.2 % (0-5); LYMPHOCYTES 26.3 % (15-50); MCH 29.1 pg (26.0-34.0); MCHC 33.3 g/dL (31.0-37.0); MCV 87.4 fL (80.0-100.0); MEAN PLATELET VOLUME 10.2 fL (7.4-10.4); MONOCYTES 5.6 % (2-11); NEUTROPHIL ABS# 6.59 10x3/uL (1.78-5.38); NEUTROPHILS 66.5 % (40-80); PLATELET COUNT 224 10x3/uL (130-400); RBC 5.25 10x6/uL (4.20-6.10); RDW 13.5 % (11.5-14.5); WBC 9.9 10x3/uL (4.8-10.8)
[2021-02-05 20:48] LABS: BILIRUBIN NEGATIVE (NEGATIVE); KETONE MODERATE mg/dL (NEGATIVE); NITRITE NEGATIVE (NEGATIVE); UROBILINOGEN NORMAL mg/dL (< 2)
[2021-02-05 20:54] LABS: ALBUMIN 3.5 g/dL (3.4-5.0); ALKALINE PHOSPHATASE 71 U/L (30-120); ALT (SGPT) 15 U/L (10-68); AMYLASE - SERUM 39 U/L (25-115); BILIRUBIN - TOTAL 0.32 mg/dL (0.2-1.3); CALCIUM 9.1 mg/dL (8.5-10.1); CARBON DIOXIDE 23.9 mmol/L (21.0-32.0); CREATININE - SERUM 0.9 mg/dL (0.6-1.3); UREA NITROGEN 26 mg/dL (7-18); eGFR NON AFRICAN AMERICAN > 90 mL/min (90-120)
[2021-02-05 20:55] LABS: GLUCOSE 247 mg/dL (74-106); LIPASE 40 U/L (73-393)
[2021-02-05 20:56] LABS: TROPONIN-I < 0.017 ng/mL (0.000-0.060)
[2021-02-05 21:01] LABS: CALC OSMOLALITY 282 mosm/kg (275-300); CHLORIDE - SERUM 102 mmol/L (98-107); POTASSIUM - SERUM 3.9 mmol/L (3.5-5.1); SODIUM 135 mmol/L (136-145)
[2021-02-05] MEDS ORDERED: BENADRYL25 MG PO (21:19)
[2021-02-05] MEDS ORDERED: BACTRIM DS TAB1 EAC1 PO (23:21)
[2021-02-05 23:33] VITALS: BP 137/85
== END 2021-02-05 23:33 | disposition home or self-care (01) ==
LOC: D.ER 19:41
PROVIDERS: Family Medicine
DX: R10.33 Periumbilical pain (principal); L03.90 Cellulitis, unspecified; K61.1 Rectal abscess; E11.9 Type 2 diabetes mellitus without complications; K21.9 Gastro-esophageal reflux disease without esophagitis; Z79.84 Long term (current) use of oral hypoglycemic drugs

== ENCOUNTER 2021-03-03 14:15 | Emergency (ER) | payer BC, OTHER ==
[~2021-03-03] VITALS: Ht 175.3 cm; Wt 83.6 kg
[~2021-03-03 14:15] MED LIST changes: +BACTRIM DS TAB1 EAC1 PO; +BENADRYL25 MG PO
[2021-03-03 14:23] VITALS: BP 129/82; Ht 175.3 cm; Wt 83.6 kg
== END 2021-03-03 15:06 | disposition home or self-care (01) ==
LOC: D.ER 14:15
DX: N49.2 Inflammatory disorders of scrotum (principal); E11.9 Type 2 diabetes mellitus without complications; I25.2 Old myocardial infarction; K21.9 Gastro-esophageal reflux disease without esophagitis; Z72.0 Tobacco use; Z79.84 Long term (current) use of oral hypoglycemic drugs